=== PATIENT | male | born 1940 | race Caucasian/White ===

== ENCOUNTER 2016-04-08 11:51 | Inpatient (IN) | payer MEDICARE ==
[~2016-04-08] VITALS: Ht 167.6 cm; Wt 109.9 kg
[2016-04-08] VITALS (18 sets, daily range): BP systolic 122–162; BP diastolic 62–83; PULSE 69–83; RESP 20–22; TEMP 97.8–98.6; O2SAT 95–99
[~2016-04-08 11:51] MED LIST: LORTA5 PO; PARO30TA OR; PENI500T PO; PRED20 PO; SIMV40TA OR; TAMS0.4C67 PO
[2016-04-08] MEDS ORDERED: HEPARIN SODIUM - IV 10,000 UNITS/10 ML VIAL IV STA (11:55)
[2016-04-08] MEDS ORDERED: NITROGLYCERIN 0.4 MG SL 25 TABS/BTL SL STA (11:55)
[2016-04-08] MEDS ORDERED: SODIUM CHLOR 0.9% 1000 ML INJ 1,000 ML IV ONE (11:55)
[2016-04-08] MEDS ORDERED: ASPIRIN 81 MG CHEW TAB PO STA (11:55)
[2016-04-08] MEDS ORDERED: SODIUM CHLORIDE 0.9% FLUSH 5 ML FLUSH IVF PRN ×2 (12:00→13:45)
[2016-04-08] MEDS ORDERED: ASPIRIN 325 MG TAB ONE (12:00)
[2016-04-08] MEDS ORDERED: NITROGLYCERIN-DEXTROSE INJ 250 ML IV SCH (12:00)
--- NOTE | 2016-04-08 12:10 | PD ---
HPI Chief Complaint: STEMI Alert Time Seen by Provider: 11:55 Travel History International Travel<30 days: No Contact w/Intl Traveler<30days: No Traveled to known affect area: No History of Present Illness HPI Patient is a 75-year-old male presents emergency Department with approximate 45 minutes worth of chest pain. Patient was apparently outside doing yard work when this started. He states it feels like he is short of breath and mildly nauseous as well. He does have a history of coronary artery disease and stents placed which was more than 5 years ago. He has not had a stress or catheterization since then. 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 He is a smoker high blood pressure high cholesterol and overweight. Patient does have a surgical history of gastric bypass, back surgery which were remote. PFSH Past Medical History Arthritis: Yes (RIGHT KNEE) Asthma: Yes Anxiety: Yes Depression: Yes Cancer: No Cardiovascular Problems: Yes High Cholesterol: Yes Diminished Hearing: Yes Endocrine: No Gastrointestinal Disorders: Yes GERD: Yes Genitourinary: No Hypertension: Yes Immune Disorder: No Implanted Vascular Access Dvce: No Musculoskeletal: Yes Neurologic: No Psychiatric: Yes Reproductive: No Respiratory: Yes Influenza Vaccination: Yes ?: Not Past Surgical History Genitourinary Surgery: Yes (KIDNEYS, APPENDIX) Other Surgery: Yes Social History Alcohol Use: Yes (occ) Tobacco Use: Yes Substance Use: No Allergies-Medications (Allergen,Severity, Reaction): Coded Allergies: No Known Allergies (Unverified , 04/08/16) Reported Meds & Prescriptions Reported Meds & Active Scripts Active Active Prescriptions or Reported Medications Unobtainable Review of Systems Except as stated in HPI: all other systems reviewed are Neg Physical Exam Narrative GENERAL: Well-developed, obese, appears uncomfortable.] SKIN: Warm and diaphoretic HEAD: Atraumatic. Normocephalic. Diaphoretic EYES: Pupils equal and round. No scleral icterus. No injection or drainage. ENT: No nasal bleeding or discharge. Mucous membranes pink and moist. NECK: Trachea midline. No JVD. CARDIOVASCULAR: Regular rate and rhythm. No murmur appreciated. 2+ bilateral equal pulses in all 4 extremities, no reproduction of his chest pain. He is diaphoretic on his chest as well. No bruising. RESPIRATORY: No accessory muscle use. Clear to auscultation. Breath sounds equal bilaterally. GASTROINTESTINAL: Abdomen soft, non-tender, nondistended. Hepatic and splenic margins not palpable. MUSCULOSKELETAL: No obvious deformities. No clubbing. No cyanosis. No edema. NEUROLOGICAL: Awake and alert. No obvious cranial nerve deficits. Motor grossly within normal limits. Normal speech. PSYCHIATRIC: Appropriate mood and affect; insight and judgment normal. Data Data Last Documented VS Vital Signs Date Time Temp Pulse Resp B/P Pulse Ox O2 Delivery O2 Flow Rate FiO2 04/08/16 12:05 82 22 150/83 99 Nasal Cannula 2 Orders Troponin I (04/08/16 11:55) Ckmb (Isoenzyme) Profile (04/08/16 11:55) Complete Blood Count With Diff (04/08/16 11:55) Basic Metabolic Panel (Bmp) (04/08/16 11:55) Magnesium (Mg) (04/08/16 11:55) Calcium (04/08/16 11:55) Prothrombin Time / Inr (Pt) (04/08/16 11:55) Act Partial Throm Time (Ptt) (04/08/16 11:55) B-Type Natriuretic Peptide (04/08/16 11:55) Chest, Single Ap (04/08/16 11:55) Electrocardiogram (04/08/16 11:55) Oxygen Administration (04/08/16 11:55) Iv Access Insert/Monitor (04/08/16 11:55) Oximetry (04/08/16 11:55) Sodium Chlor 0.9% 1000 Ml Inj (Ns 1000 M (04/08/16 11:55) Sodium Chloride 0.9% Flush (Ns Flush) (04/08/16 12:00) Aspirin Chew (Aspirin Chew) (04/08/16 11:55) Nitroglycerin Sl (Nitrostat Sl) (04/08/16 11:55) Nitroglycerin-Dextrose Inj (Nitroglyceri (04/08/16 12:00) Heparin Inj (Heparin Inj) (04/08/16 11:55) Aspirin (Aspirin) (04/08/16 12:00) Admit Order (Ed Use Only) (04/08/16 ) MDM Medical Decision Making Medical Screen Exam Complete: Yes Emergency Medical Condition: Yes Interpretation(s) EKG shows normal sinus rhythm with a normal axis and normal R-wave progression. There is [address] elevation in lead 3 as well as 2 mm in aVF and 1 mm in lead 2. There is also ST depression in aVL V2 and probably V3 only this lead is limited interpretation second artifact. Also ST depression in lead 1. This is consistent with an acute myocardial infarction in the inferior region. Differential Diagnosis STEMI, ACS, unstable angina, pneumonia. Narrative Course Patient was roomed in the emergency department, STEMI alert was called shortly after arrival. Dr. Cordero's was consult by telephone and plan is to go to the cardiac catheter lab. He was given 324 mg of aspirin, 5000 units of heparin IV , nitroglycerin was used cautiously as this is an inferior DE. EMS is being called and patient will be emergently transferred to the [facility] for cardiac catheterization. Chest x-ray was reviewed and shows cardiomegaly without mediastinal widening. No concerning infiltrate or effusion. Diagnosis Primary Impression: STEMI (ST elevation myocardial infarction) Qualified Code: I21.3 - ST elevation myocardial infarction (STEMI), unspecified artery Admitting Information Admitting Physician Requests: Admit Scripts Unable to Obtain Active Prescriptions or Reported Meds Condition: Jaden De Leon MD Apr 08, 2016 12:10 Admitting Information Admitting Physician Requests: Admit Condition: Jaden De Leon MD Apr 08, 2016 12:10
[2016-04-08 12:14] LABS: AUTOMATED NEUTROPHIL # 5.8 TH/MM3 (1.8-7.7); BASOPHIL # 0.1 TH/MM3 (0-0.2); BASOPHIL % 0.9 % (0.0-2.0); EOSINOPHIL # 0.3 TH/MM3 (0-0.4); EOSINOPHIL % 3.7 % (0.0-4.0); HEMATOCRIT 43.8 % (39.0-51.0); HEMO FLAGS DIFF FINAL; LYMPH % 25.6 % (9.0-44.0); LYMPHOCYTE # 2.4 TH/MM3 (1.0-4.8); MEAN CELL VOLUME 91.7 FL (80.0-100.0); MEAN CORPUSCULAR HEMOGLOBIN 30.8 PG (27.0-34.0); MEAN CORPUSCULAR HGB CONC 33.6 % (32.0-36.0); MONO % 7.1 % (0.0-8.0); NEUT % 62.7 % (16.0-70.0); PLATELET COUNT 223 TH/MM3 (150-450); RED BLOOD COUNT 4.77 MIL/MM3 (4.50-5.90); RED CELL DISTRIBUTION WIDTH 12.2 % (11.6-17.2); WHITE BLOOD COUNT 9.3 TH/MM3 (4.0-11.0)
--- NOTE | 2016-04-08 12:14 | RADHPO ---
EXAM DATE/TIME: 04/08/2016 12:02 [place] COMPARISON: CHEST SINGLE AP, April 05, 2012, 6:51. INDICATIONS : Chest pain. MEDICAL HISTORY : None. SURGICAL HISTORY : None. ENCOUNTER: Initial ACUITY: 1 day PAIN SCORE: 7/10 LOCATION: Bilateral chest FINDINGS: A single view of the chest demonstrates mild bibasilar atelectasis. The heart size is mildly enlarged but stable. No pleural effusions. Mild pulmonary venous congestion. The bony structures are intact a nd stable.. CONCLUSION: 1. Mild bibasilar atelectasis. 2. Compensated cardiomegaly. 3. Mild pulmonary venous congestion. Margarito Garcia MD on April 08, 2016 at 12:11 Board Certified Radiologist. This report was verified electronically.
[2016-04-08 12:15] LABS: CHLORIDE 107 MEQ/L (98-107); SODIUM (NA) 144 MEQ/L (136-145)
[2016-04-08 12:18] LABS: ANION GAP 12 MEQ/L (5-15); BICARBONATE 24.8 MEQ/L (21.0-32.0); BLOOD UREA NITROGEN 18 MG/DL (7-18); MAGNESIUM 2.6 MG/DL (1.5-2.5)
[2016-04-08 12:19] LABS: INTERNATIONAL NORMALIZED RATIO 0.9 RATIO; PROTHROMBIN TIME - PATIENT 9.8 SEC (9.8-11.6)
[2016-04-08 12:21] LABS: GLOMERULAR FILTRATION RATE 49 ML/MIN (>89)
[2016-04-08 12:28] LABS: CREATINE KINASE 90 U/L (39-308)
[2016-04-08] MEDS ORDERED: HEPARIN-NS/PF INJ 500 ML ONE (12:38)
[2016-04-08] MEDS ORDERED: MIDAZOLAM HCL 2 MG/2 ML VIAL ONE ×2 (12:39→13:27)
[2016-04-08] MEDS ORDERED: HEPARIN SODIUM - IV 10,000 UNITS/10 ML VIAL ONE (13:08)
[2016-04-08] MEDS ORDERED: TIROFIBAN INFUSION INJ 250 ML IV ONE (13:10)
[2016-04-08] MEDS ORDERED: TICAGRELOR 90 MG TAB PO ONE (13:31)
[2016-04-08] MEDS: SODIUM CHLOR 0.9% 1000 ML INJ 1,000 ML IV SCH ×2 (13:41→21:52)
[2016-04-08] MEDS ORDERED: LORazepam 2 MG/ML VIAL IV PRN (13:45)
[2016-04-08] MEDS ORDERED: ATROPINE SULFATE 1 MG/ML VIAL IV PRN (13:45)
[2016-04-08] MEDS ORDERED: LIDOCAINE HCL 1% 50 ML VIAL INFIL PRN (13:45)
[2016-04-08] MEDS ORDERED: SODIUM CHLOR 0.9% 250 ML INJ 250 ML IV PRN (13:45)
[2016-04-08] MEDS ORDERED: ACETAMINOPHEN 325 MG TAB PO PRN (13:45)
[2016-04-08] MEDS ORDERED: MISC INFORMATION XX ONE (13:45)
[2016-04-08] MEDS ORDERED: ONDANSETRON HCL 4 MG/2 ML VIAL IV PRN (13:45)
[2016-04-08] MEDS ORDERED: TEMAZEPAM 15 MG CAP PO PRN (13:45)
[2016-04-08] MEDS ORDERED: MORPHINE SULFATE 4 MG/ML INJ IV PUSH PRN (13:45)
[2016-04-08] MEDS ORDERED: MIRA50TA PO (14:00)
[2016-04-08] MEDS ORDERED: TAMS0.4C4 PO (14:00)
[2016-04-08] MEDS ORDERED: ALEN1TAB48 PO (14:00)
[2016-04-08] MEDS ORDERED: FLUT1INH INH (14:00)
[2016-04-08] MEDS ORDERED: PRESCAP5 PO (14:00)
[2016-04-08] MEDS ORDERED: SIMV40TA PO (14:00)
[2016-04-08] MEDS ORDERED: OXYB10TA PO (14:00)
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
--- NOTE | 2016-04-08 16:18 | MA ---
cc: DONATO MILLS M.D. DATE: 04/08/2016 PROCEDURE Emergency left heart catheterization, selective coronary angiography, left ventriculography, angioplasty and stent of a totally occluded mid right coronary artery. PROCEDURE NOTE The patient was brought to the cardiac catheterization laboratory under emergency conditions in the midst of an acute inferior myocardial infarction. The right groin was prepped and draped as per policy and anesthetized with 1% lidocaine. Arterial access was obtained via the right femoral artery and a 6-Bhutanese sheath placed. Coronary arteriography was performed using 6-Bhutanese Leonor left 4.5 and right progressive catheters. Left ventriculography was done using a standard 6-Bhutanese pigtail. Percutaneous coronary intervention was done as described below. There were no apparent immediate complications. HEMODYNAMIC RESULTS Left ventricle 128 with an end-diastolic pressure of 10. Aorta 123/61 with a mean 85. There was no significant transvalvular aortic gradient on pullback on pullback of the pigtail catheter. CORONARY ARTERIOGRAPHY The left main is a long vessel with diffuse disease resulting in up to 30% distal stenosis. The left anterior descending is tortuous and diffusely diseased. There is likely up to 20% disease in the proximal LAD. In the mid-LAD there is eccentric 50-70% stenosis. The vessel in this region is small in diameter. The LAD gives rise to medium-sized diagonal which has diffuse minimal luminal irregularities. The distal left anterior descending may have up to 10% stenosis. The left circumflex is a medium-sized vessel giving rise to two small obtuse marginals. There are minimal luminal irregularities in these obtuse marginals. From the ostium to the proximal portion of the left circumflex there is diffuse up to 40% stenosis. The mid to distal left circumflex has minimal luminal minimal luminal irregularities. The right coronary artery is totally occluded in its midportion. PERCUTANEOUS INTERVENTION DESCRIPTION: Aggrastat was given as per protocol. Adequate heparin was given during the procedure to achieve an ACT greater than 250 seconds. Using a 6-Bhutanese hockey-stick guiding catheter with side holes the ostium of the right coronary artery was re-engaged. Using a 0.014 Prowater guidewire the total occlusion was crossed without difficulty and the tip of the wire positioned distally. Wiring the lesion resulted in re-establishment of NANCY grade 2 flow in the vessel. Because of what appears to be thrombus in the region of the stenosis, we decided to make one pass with a export thrombectomy catheter. Pre-dilation was then done using a 3.0-mm Euphora balloon catheter. Stenting was done using a 3.0 x 22-mm Resolute stent which was deployed at 13 atmospheres for 30 seconds. Final angiography shows overall good results with reduction of the initial total occlusion the roughly 0% residual with no definite evidence for dissection or distal embolization. There appears to be minimal to mild diffuse luminal irregularities of the distal right coronary, and what functionally serves as the posterior descending artery is a small to medium sized vessel with overall minimal disease. LEFT VENTRICULOGRAPHY Contrast injection of the left ventricle reveals no definite segmental wall motion abnormalities. Ejection fraction is estimated at 60%. CONCLUSION 1. Moderate to severe three-vessel coronary artery disease including a totally occluded right coronary artery, the patient's infarct-related vessel, now status post emergency angioplasty and stent of the mid right coronary. 2. Normal left ventricular function with estimated ejection fraction of 60%. DISCUSSION The patient has residual borderline disease in the mid-LAD. The vessel in this region is fairly small, likely no greater than 2 mm diameter. Consideration will be made towards nuclear stress testing in the near future to assess the significance of this lesion. MD PARAMJIT Tinajero/britni /1:37 PM /2:43 PM MTDJosé
[2016-04-08] MEDS ORDERED: IOHEXOL 350 MG/ML 100 ML BTL (for Cath Lab) OTHER ONE (16:30)
[2016-04-08] MEDS ORDERED: BACITRACIN OINT 0.9 GM PKT ONE (17:35)
--- NOTE | 2016-04-08 18:36 | HHI.HP ---
HPI Service [facility] Hospitalists Primary Care Physician Isak Escudero MD Admission Diagnosis STEMI Diagnoses: (1) STEMI (ST elevation myocardial infarction) Chief Complaint: Chest pain Travel History International Travel<30 Days: No Contact w/Intl Traveler <30 Da: No Traveled to Known Affected Are: No History of Present Illness 75 year-old male with a history of hyperlipidemia, hypertension, who experienced today substernal chest pain described as stabbing pain without any radiation or diaphoresis, rated 10 out of 10 in intensity, was admitted to [place] and transfer to [facility] as STEMI alert for emergent left heart catheterization by cardiology. He was seen postprocedure in his room . Patient has no GI bleed and, at the time denies any shortness of breath. Review of Systems Other Other 12 systems reviewed and are negative except for the one mentioned in history of present illness Past Family Social History Past Medical History 1. Hypertension 2. Hyperlipidemia. Past Surgical History 1. Gastric bypass surgery. 2. Appendectomy 3. Multiple hand surgeries Allergies: Coded Allergies: No Known Allergies (Unverified , 04/08/16) Family History Patient's mother from sudden cardiac in her sleep Social History Alcohol Use: Yes (occ) Tobacco Use: Yes Substance Use: No Physical Exam Vital Signs Vital Signs Date Time Temp Pulse Resp B/P Pulse Ox O2 Delivery O2 Flow Rate FiO2 04/08/16 18:11 75 04/08/16 17:45 80 04/08/16 16:00 78 04/08/16 16:00 98.0 78 20 162/81 98 04/08/16 12:09 81 20 129/67 98 Nasal Cannula 2 04/08/16 12:05 82 22 150/83 99 Nasal Cannula 2 04/08/16 12:04 99 Nasal Cannula 2 04/08/16 11:56 82 99 Room Air 04/08/16 11:55 99 2.00 04/08/16 11:54 83 20 Physical Exam GENERAL: This is a well-nourished, well-developed patient, in no apparent distress. SKIN: No rashes, ecchymoses or lesions. Cool and dry. HEAD: Atraumatic. Normocephalic. No temporal or scalp tenderness. EYES: Pupils equal round and reactive. Extraocular motions intact. No scleral icterus. No injection or drainage. ENT: Nose without bleeding, purulent drainage or septal hematoma. Throat without erythema, tonsillar hypertrophy or exudate. Uvula midline. Airway patent. NECK: Trachea midline. No JVD or lymphadenopathy. Supple, nontender, no meningeal signs. CARDIOVASCULAR: Regular rate and rhythm without murmurs, gallops, or rubs. RESPIRATORY: Clear to auscultation. Breath sounds equal bilaterally. No wheezes , rales, or rhonchi. GASTROINTESTINAL: Abdomen soft, non-tender, nondistended. No hepato-splenomegaly , or palpable masses. No guarding. MUSCULOSKELETAL: Extremities without clubbing, cyanosis, or edema. No joint tenderness, effusion, or edema noted. No calf tenderness. Negative Homans sign bilaterally. NEUROLOGICAL: Awake and alert. Cranial nerves II through XII intact. Motor and sensory grossly within normal limits. Five out of 5 muscle strength in all muscle groups. Normal speech. Laboratory Laboratory Tests Test 04/08/16 11:45 White Blood Count 9.3 Red Blood Count 4.77 Hemoglobin 14.7 Hematocrit 43.8 Mean Corpuscular Volume 91.7 Mean Corpuscular Hemoglobin 30.8 Mean Corpuscular Hemoglobin 33.6 Concent Red Cell Distribution Width 12.2 Platelet Count 223 Mean Platelet Volume 7.5 Neutrophils (%) (Auto) 62.7 Lymphocytes (%) (Auto) 25.6 Monocytes (%) (Auto) 7.1 Eosinophils (%) (Auto) 3.7 Basophils (%) (Auto) 0.9 Neutrophils # (Auto) 5.8 Lymphocytes # (Auto) 2.4 Monocytes # (Auto) 0.7 Eosinophils # (Auto) 0.3 Basophils # (Auto) 0.1 CBC Comment DIFF FINAL Differential Comment Prothrombin Time 9.8 Prothromb Time International 0.9 Ratio Activated Partial 22.0 Thromboplast Time Sodium Level 144 Potassium Level 4.0 Chloride Level 107 Carbon Dioxide Level 24.8 Anion Gap 12 Blood Urea Nitrogen 18 Creatinine 1.40 Estimat Glomerular Filtration 49 Rate Random Glucose 116 Calcium Level 9.3 Magnesium Level 2.6 Total Creatine Kinase 90 Troponin I LESS THAN 0.02 B-Type Natriuretic Peptide 26 Result Diagram: 04/08/16 1145 04/08/16 1145 Assessment and Plan Problem List: (1) STEMI (ST elevation myocardial infarction) ICD Code: I21.3 Status: Acute Assessment and Plan 75-year-old male with 1-STEMI: s/p emergent left heart catheterization with PCI + stent placement; treatment per cardiology. Continue nitroglycerin, Brilinta, aspirin, Coreg, DENISE inhibitor, statin. Telemetry monitoring 2-Hypertension: On Coreg 3-Hyperlipidemia: Continue statin, monitor lipid profile 4-DVT prophylaxis:Brilinta Code Status Full code Discussed Condition With Patient, Physician Certification 2 Midnight Certification Type: Admission for Inpatient Services Order for Inpatient Services The services are ordered in accordance with Medicare regulations or non- Medicare payer requirements, as applicable. In the case of services not specified as inpatient-only, they are appropriately provided as inpatient services in accordance with the 2-midnight benchmark. Estimated LOS (days): 2 days is the estimated time the patient will need to remain in the hospital, assuming treatment plan goals are met and no additional complications. Post-Hospital Plan: Not yet determined Problem Qualifiers (1) STEMI (ST elevation myocardial infarction): Qualified Code: I21.11 - ST elevation myocardial infarction involving right coronary artery Kishore Denny MD Apr 08, 2016 18:36
[2016-04-08] MEDS ORDERED: CARVEDILOL 3.125 MG TAB PO SCH (21:00)
[2016-04-08] MEDS: ATORVASTATIN 40 MG TAB PO SCH (21:14)
[2016-04-08] MEDS: SODIUM CHLORIDE 0.9% FLUSH 5 ML FLUSH IVF SCH (21:14)
[2016-04-08] MEDS: ENALAPRIL MALEATE 5 MG TAB PO SCH (21:14)
[2016-04-08] MEDS ORDERED: TIROFIBAN INFUSION 12.5 MG/NS 250 ML IV SCH (22:15)
[2016-04-09] VITALS (24 sets, daily range): BP systolic 117–133; BP diastolic 57–67; PULSE 60–78; RESP 18–22; TEMP 97.7–98.6; O2SAT 96–99
[2016-04-09 04:12] LABS: AUTOMATED NEUTROPHIL # 8.6 TH/MM3 (1.8-7.7); BASOPHIL % 0.1 % (0.0-2.0); EOSINOPHIL # 0.2 TH/MM3 (0-0.4); HEMATOCRIT 37.5 % (39.0-51.0); HEMO FLAGS DIFF FINAL; LYMPH % 12.4 % (9.0-44.0); LYMPHOCYTE # 1.4 TH/MM3 (1.0-4.8); MEAN CELL VOLUME 92.4 FL (80.0-100.0); MEAN CORPUSCULAR HEMOGLOBIN 32.1 PG (27.0-34.0); MEAN CORPUSCULAR HGB CONC 34.8 % (32.0-36.0); MONO % 6.9 % (0.0-8.0); NEUT % 78.6 % (16.0-70.0); PLATELET COUNT 175 TH/MM3 (150-450); RED BLOOD COUNT 4.07 MIL/MM3 (4.50-5.90); RED CELL DISTRIBUTION WIDTH 13.2 % (11.6-17.2)
[2016-04-09 04:41] LABS: BICARBONATE 27.4 MEQ/L (21.0-32.0); POTASSIUM 4.5 MEQ/L (3.5-5.1)
[2016-04-09 05:09] LABS: CKMB 133.4 NG/ML (0.5-3.6)
--- NOTE | 2016-04-09 06:48 | PD.CARD.PN ---
Subjective Subjective Remarks Denies angina, dyspnea, dizziness, palpitations. Slept poorly. No groin pain. Objective Medications Item Value Date Time Ticagrelor 90 mg 04/09/16 0900 (Brilinta) BID/PO Tirofiban/Sodium 250 ml @ 19.8 mls/hr 04/08/162214 Chloride [id number]/IV 04/08/16 2343 Atorvastatin 40 mg 04/08/162099 Calcium HS/PO 04/08/162113 (Lipitor) Carvedilol 3.125 mg 04/08/16 2100 (Coreg) Q12HR/PO 04/08/162113 Enalapril Maleate 5 mg 04/08/162099 (Vasotec) BID/PO 04/08/162113 Vital Signs / I&O Vital Signs Date Time Temp Pulse Resp B/P Pulse Ox O2 Delivery O2 Flow Rate FiO2 04/09/16 06:00 72 04/09/16 05:00 73 04/09/16 04:00 72 04/09/16 03:57 98.6 70 20 120/57 98 04/09/16 03:00 69 04/09/16 02:00 71 04/09/16 01:00 68 04/09/16 00:00 74 04/09/16 00:00 71 20 123/67 96 04/08/16 23:45 98.6 73 20 141/63 97 04/08/16 23:30 73 20 145/70 97 04/08/16 23:00 74 04/08/16 23:00 74 20 144/70 98 04/08/16 22:30 73 20 145/70 96 04/08/16 22:00 74 20 142/69 97 04/08/16 22:00 74 04/08/16 21:30 72 20 151/71 97 04/08/16 21:00 69 20 135/71 97 04/08/16 21:00 69 04/08/16 20:30 69 20 128/63 99 04/08/16 20:00 70 20 122/62 95 04/08/16 20:00 70 04/08/16 20:00 77 04/08/16 19:30 72 20 132/68 98 04/08/16 19:00 97.8 76 20 128/69 97 04/08/16 18:11 75 04/08/16 17:45 80 04/08/16 16:00 78 04/08/16 16:00 98.0 78 20 162/81 98 04/08/16 12:09 81 20 129/67 98 Nasal Cannula 2 04/08/16 12:05 82 22 150/83 99 Nasal Cannula 2 04/08/16 12:04 99 Nasal Cannula 2 04/08/16 11:56 82 99 Room Air 04/08/16 11:55 99 2.00 04/08/16 11:54 83 20 I/O 04/08/16 04/08/16 04/08/16 04/09/16 04/09/16 04/09/16 07:00 15:00 23:00 07:00 15:00 23:00 Intake Total 670 ml 718 ml Output Total 700 ml 450 ml Balance -30 ml 268 ml Intake Oral 480 ml 480 ml IV Total 190 ml 238 ml Output Urine Total 700 ml 450 ml Emesis 0 ml # Bowel Movements 0 0 Physical Exam GENERAL: Well developed, well nourished. No acute distress. HEENT: Jugular venous pressure is normal. CHEST: Lungs clear to auscultation bilaterally. Unlabored respiratory effort. CARDIAC: Regular rate and rhythm without S3, S4, or murmur. ABDOMEN: Soft, nontender, no hepatosplenomegaly. Bowel sounds present. EXTREMITIES: No clubbing, cyanosis, or edema. Right groin nontender, no definite hematoma. Laboratory Laboratory Tests Test 04/08/16 04/09/16 11:45 03:24 White Blood Count 9.3 TH/MM3 11.0 TH/MM3 Red Blood Count 4.77 MIL/MM3 4.07 MIL/MM3 Hemoglobin 14.7 GM/DL 13.1 GM/DL Hematocrit 43.8 % 37.5 % Mean Corpuscular Volume 91.7 FL 92.4 FL Mean Corpuscular Hemoglobin 30.8 PG 32.1 PG Mean Corpuscular Hemoglobin 33.6 % 34.8 % Concent Red Cell Distribution Width 12.2 % 13.2 % Platelet Count 223 TH/MM3 175 TH/MM3 Mean Platelet Volume 7.5 FL 7.8 FL Neutrophils (%) (Auto) 62.7 % 78.6 % Lymphocytes (%) (Auto) 25.6 % 12.4 % Monocytes (%) (Auto) 7.1 % 6.9 % Eosinophils (%) (Auto) 3.7 % 2.0 % Basophils (%) (Auto) 0.9 % 0.1 % Neutrophils # (Auto) 5.8 TH/MM3 8.6 TH/MM3 Lymphocytes # (Auto) 2.4 TH/MM3 1.4 TH/MM3 Monocytes # (Auto) 0.7 TH/MM3 0.8 TH/MM3 Eosinophils # (Auto) 0.3 TH/MM3 0.2 TH/MM3 Basophils # (Auto) 0.1 TH/MM3 0.0 TH/MM3 CBC Comment DIFF FINAL DIFF FINAL Differential Comment Prothrombin Time 9.8 SEC Prothromb Time International 0.9 RATIO Ratio Activated Partial 22.0 SEC Thromboplast Time Sodium Level 144 MEQ/L 140 MEQ/L Potassium Level 4.0 MEQ/L 4.5 MEQ/L Chloride Level 107 MEQ/L 106 MEQ/L Carbon Dioxide Level 24.8 MEQ/L 27.4 MEQ/L Anion Gap 12 MEQ/L 7 MEQ/L Blood Urea Nitrogen 18 MG/DL 17 MG/DL Creatinine 1.40 MG/DL 1.02 MG/DL Estimat Glomerular Filtration 49 ML/MIN 71 ML/MIN Rate Random Glucose 116 MG/DL 114 MG/DL Calcium Level 9.3 MG/DL 8.3 MG/DL Magnesium Level 2.6 MG/DL Total Creatine Kinase 90 U/L 1232 U/L Troponin I LESS THAN 0.02 NG/ML B-Type Natriuretic Peptide 26 PG/ML Creatine Kinase MB 133.4 NG/ML Creatine Kinase MB % 10.8 % Triglycerides Level 169 MG/DL Cholesterol Level 121 MG/DL LDL Cholesterol 51 MG/DL HDL Cholesterol 36.0 MG/DL Cholesterol/HDL Ratio 3.36 RATIO Assessment and Plan Problem List: (1) STEMI (ST elevation myocardial infarction) Assessment and Plan: Stable overnight. No further angina. No definite CHF or arrhythmias. Groin stable. REC 24 more hours observation ambulate this afternoon discharge tomorrow if stable, 3-4 week f/u with me will consider nuclear stress testing to evaluate residual mid LAD disease (50-70%) (2) Hyperlipidemia Assessment and Plan: Good lipid profile. Nonetheless rec statin therapy. (3) Hypertension Assessment and Plan: Stable. Normotensive this morning. Code Status full code Discussed Condition With patient Problem Qualifiers (1) STEMI (ST elevation myocardial infarction): Qualified Code: I21.11 - ST elevation myocardial infarction involving right coronary artery (2) Hyperlipidemia: Qualified Code: E78.2 - Mixed hyperlipidemia (3) Hypertension: Qualified Code: I10 - Essential hypertension Al Askew MD Apr 09, 2016 06:48
[2016-04-09] MEDS ORDERED: CARV3.125 PO (06:51)
[2016-04-09] MEDS ORDERED: ENAL5TAB PO (06:51)
[2016-04-09] MEDS ORDERED: BRIL90TA PO (06:51)
[2016-04-09] MEDS ORDERED: LIPI40TA PO (06:51)
[2016-04-09] MEDS ORDERED: ASPI81TA11 PO (06:52)
[2016-04-09] MEDS: SODIUM CHLORIDE 0.9% FLUSH 5 ML FLUSH IVF SCH ×2 (07:57→21:34)
[2016-04-09] MEDS: CARVEDILOL 3.125 MG TAB PO SCH ×2 (07:57→21:33)
[2016-04-09] MEDS: TICAGRELOR 90 MG TAB PO SCH ×2 (07:57→21:33)
[2016-04-09] MEDS: ENALAPRIL MALEATE 5 MG TAB PO SCH ×2 (08:55→21:34)
--- NOTE | 2016-04-09 11:27 | HHI.PR ---
Subjective Remarks Follow-up STEMI 04/09/16-patient seen and examined; denies any chest pain or shortness of breath this morning. Vitals stable. No acute event overnight. Objective Vitals Vital Signs Date Time Temp Pulse Resp B/P Pulse Ox O2 Delivery O2 Flow Rate FiO2 04/09/16 10:07 66 04/09/16 09:24 60 04/09/16 08:00 97.9 66 22 133/67 97 04/09/16 08:00 67 04/09/16 06:00 72 04/09/16 05:00 73 04/09/16 04:00 72 04/09/16 03:57 98.6 70 20 120/57 98 04/09/16 03:00 69 04/09/16 02:00 71 04/09/16 01:00 68 04/09/16 00:00 74 04/09/16 00:00 71 20 123/67 96 04/08/16 23:45 98.6 73 20 141/63 97 04/08/16 23:30 73 20 145/70 97 04/08/16 23:00 74 04/08/16 23:00 74 20 144/70 98 04/08/16 22:30 73 20 145/70 96 04/08/16 22:00 74 20 142/69 97 04/08/16 22:00 74 04/08/16 21:30 72 20 151/71 97 04/08/16 21:00 69 20 135/71 97 04/08/16 21:00 69 04/08/16 20:30 69 20 128/63 99 04/08/16 20:00 70 20 122/62 95 04/08/16 20:00 70 04/08/16 20:00 77 04/08/16 19:30 72 20 132/68 98 04/08/16 19:00 97.8 76 20 128/69 97 04/08/16 18:11 75 04/08/16 17:45 80 04/08/16 16:00 78 04/08/16 16:00 98.0 78 20 162/81 98 04/08/16 12:09 81 20 129/67 98 Nasal Cannula 2 04/08/16 12:05 82 22 150/83 99 Nasal Cannula 2 04/08/16 12:04 99 Nasal Cannula 2 04/08/16 11:56 82 99 Room Air 04/08/16 11:55 99 2.00 04/08/16 11:54 83 20 I/O 04/08/16 04/08/16 04/08/16 04/09/16 04/09/16 04/09/16 07:00 15:00 23:00 07:00 15:00 23:00 Intake Total 670 ml 718 ml Output Total 700 ml 450 ml Balance -30 ml 268 ml Intake Oral 480 ml 480 ml IV Total 190 ml 238 ml Output Urine Total 700 ml 450 ml Emesis 0 ml # Bowel Movements 0 0 Result Diagram: 04/09/16 0324 04/09/16 0324 Imaging Last Impressions Chest X-Ray 04/08/16 1155 Signed Impressions: Service Date/Time: March 12:02 - CONCLUSION: 1. Mild bibasilar atelectasis. 2. Compensated cardiomegaly. 3. Mild pulmonary venous congestion. Margarito Garcia MD Objective Remarks GENERAL: NAD SKIN: Warm and dry. HEAD: Normocephalic. EYES: No scleral icterus. No injection or drainage. NECK: Supple, trachea midline. No JVD or lymphadenopathy. CARDIOVASCULAR: Regular rate and rhythm without murmurs, gallops, or rubs. RESPIRATORY: Breath sounds equal bilaterally. No accessory muscle use. GASTROINTESTINAL: Abdomen soft, non-tender, nondistended. MUSCULOSKELETAL: No cyanosis, or edema. BACK: Nontender without obvious deformity. No CVA tenderness. A/P Problem List: (1) STEMI (ST elevation myocardial infarction) ICD Code: I21.3 Status: Acute Assessment and Plan 75-year-old male with 1-STEMI: s/p emergent left heart catheterization with PCI + stent placement ; treatment per cardiology. Continue Brilinta, aspirin, Coreg, DENISE inhibitor, statin. Cardiology recommended nuclear stress test outpatient. Telemetry monitoring 2-Hypertension: On Coreg 3-hyperlipidemia: Continue statin, monitor lipid profile 4-DVT prophylaxis:Brilinta Discharged tomorrow 04/10/16 Problem Qualifiers (1) STEMI (ST elevation myocardial infarction): Qualified Code: I21.11 - ST elevation myocardial infarction involving right coronary artery Kishore Denny MD Apr 09, 2016 11:27
[2016-04-09] MEDS: FLUTICASONE 100 MCG/VILANTEROL 25 MCG INHALER INH SCH (11:45)
[2016-04-09] MEDS ORDERED: RESP: ALBUTEROL 2.5 MG/IPRATROPIUM 0.5 MG NEB (PRN) NEB (11:45)
[2016-04-09] MEDS ORDERED: TAMSULOSIN HCL 0.4 MG CAP PO SCH (21:00)
[2016-04-09] MEDS: ATORVASTATIN 40 MG TAB PO SCH (21:33)
--- NOTE | 2016-04-09 23:02 | EKG ---
Date Performed: 04/08/2016 Time Performed: 11:51:24 PTAGE: 75 years EKG: CONSIDER ACUTE ST ELEVATION MT Sinus rhythm with 1st degree A-V block. Inferior ST elevation, CONSIDER ACUTE INFARCT Ant/septal and lateral ST-T changes suggest myocardial injury/ischemia Abnormal ECG PREVIOUS TRACING : 04/05/2012 05.12 DOCTOR: Sindi Garcia Interpretating Date/Time 04/09/2016 22:53:17
[2016-04-10] VITALS (12 sets, daily range): BP systolic 105–116; BP diastolic 55–75; PULSE 61–75; RESP 18–20; TEMP 97.4–97.7; O2SAT 96–97
[2016-04-10] MEDS: CARVEDILOL 3.125 MG TAB PO SCH (09:08)
[2016-04-10] MEDS: TICAGRELOR 90 MG TAB PO SCH (09:08)
[2016-04-10] MEDS: ENALAPRIL MALEATE 5 MG TAB PO SCH (09:09)
[2016-04-10] MEDS: SODIUM CHLORIDE 0.9% FLUSH 5 ML FLUSH IVF SCH (09:10)
[2016-04-10] MEDS: FLUTICASONE 100 MCG/VILANTEROL 25 MCG INHALER INH SCH (09:11)
--- NOTE | 2016-04-10 09:22 | PD.CARD.PN ---
Subjective Subjective Remarks No chest pain, no shortness of breath, up and ambulating Objective Medications Current Medications Medications (Trade) Dose Ordered Sig/Nick Route Start Time Stop Time Status Last Admin (Nitroglycerin-Dextrose Inj) 250 ml @ 0 mls/hr TITRATE IV 04/08/16 12:00 (NS Flush) 2 ml UNSCH PRN IVF 04/08/16 13:45 (NS Flush) 2 ml BID IVF 04/08/16 21:00 04/10/16 09:10 (Tylenol) 325 mg Q4H PRN PO 04/08/16 13:45 (Morphine Inj) 2 mg Q30M PRN IV PUSH 04/08/16 13:45 (Restoril) 15 mg HS PRN PO 04/08/16 13:45 (Brilinta) 90 mg BID PO 04/09/16 09:00 04/10/16 09:08 (Atropine Inj) 0.5 mg UNSCH PRN IV 04/08/16 13:45 (Zofran Inj) 4 mg Q4H PRN IV 04/08/16 13:45 (Lipitor) 40 mg HS PO 04/08/16 21:00 04/09/16 21:33 (Vasotec) 5 mg BID PO 04/08/16 21:00 04/10/16 09:09 (Coreg) 6.25 mg Q12HR PO 04/09/16 09:00 04/10/16 09:08 (Breo Ellipta 100-25 Inh) 1 puff DAILY INH 04/09/16 11:45 04/10/16 09:11 (Flomax) 0.4 mg HS PO 04/09/16 21:00 04/09/16 21:34 Vital Signs / I&O Vital Signs Date Time Temp Pulse Resp B/P Pulse Ox O2 Delivery O2 Flow Rate FiO2 04/10/16 07:57 Room Air 04/10/16 07:57 97.7 64 20 116/75 96 04/10/16 06:00 74 04/10/16 05:00 65 04/10/16 04:00 97.4 74 20 112/55 96 04/10/16 04:00 Room Air 04/10/16 04:00 68 04/10/16 03:00 68 04/10/16 02:00 67 04/10/16 01:00 70 04/10/16 00:00 75 04/10/16 00:00 97.6 74 18 105/55 97 04/10/16 00:00 Room Air 04/09/16 23:00 71 04/09/16 22:00 71 04/09/16 21:00 68 04/09/16 20:00 Room Air 04/09/16 20:00 97.9 68 18 131/64 96 04/09/16 20:00 68 04/09/16 19:00 69 04/09/16 18:00 78 04/09/16 17:03 74 04/09/16 16:12 70 04/09/16 15:03 68 04/09/16 15:03 97.7 66 22 117/63 99 04/09/16 14:04 62 04/09/16 13:04 67 04/09/16 12:07 71 04/09/16 11:25 98.0 71 22 133/67 99 04/09/16 11:25 69 04/09/16 10:07 66 04/09/16 09:24 60 I/O 04/09/16 04/09/16 04/09/16 04/10/16 04/10/16 04/10/16 07:00 15:00 23:00 07:00 15:00 23:00 Intake Total 718 ml 600 ml 600 ml Output Total 450 ml Balance 268 ml 600 ml 600 ml Intake Oral 480 ml 600 ml 600 ml IV Total 238 ml Output Urine Total 450 ml Emesis 0 ml # Voids 8 10 # Bowel Movements 0 1 0 Physical Exam GENERAL: NAD SKIN: Warm and dry. HEAD: Atraumatic. Normocephalic. EYES: Pupils equal and round. No scleral icterus. No injection or drainage. ENT: No nasal bleeding or discharge. Mucous membranes pink and moist. NECK: Trachea midline. No JVD. CARDIOVASCULAR: Regular rate and rhythm. RESPIRATORY: No accessory muscle use. Clear to auscultation. Breath sounds equal bilaterally. GASTROINTESTINAL: Abdomen soft, non-tender, nondistended. Hepatic and splenic margins not palpable. MUSCULOSKELETAL: Extremities without clubbing, cyanosis, or edema. No obvious deformities. Right femoral no hematoma/bruit NEUROLOGICAL: Awake and alert. No obvious cranial nerve deficits. Motor grossly within normal limits. Five out of 5 muscle strength in the arms and legs. Normal speech. PSYCHIATRIC: Appropriate mood and affect; insight and judgment normal. Assessment and Plan Problem List: (1) STEMI (ST elevation myocardial infarction) (2) Hyperlipidemia (3) Hypertension Assessment and Plan 1) Doing well, will discharge today 2) ASA/Brilinta/Statin/Coreg 3) Follow up with Dr. Askew in 3-4 weeks, moderate lesion LAD, will consider nuclear stress test at that time Problem Qualifiers (1) STEMI (ST elevation myocardial infarction): Qualified Code: I21.11 - ST elevation myocardial infarction involving right coronary artery (2) Hyperlipidemia: Qualified Code: E78.2 - Mixed hyperlipidemia (3) Hypertension: Qualified Code: I10 - Essential hypertension Kamron Calderón DO Apr 10, 2016 09:22
--- NOTE | 2016-04-10 09:25 | HHI.DS ---
Discharge Summary Admission Date Apr 08, 2016 at 12:06 Admitting Diagnosis STEMI (1) STEMI (ST elevation myocardial infarction) Diagnosis: Principal (2) Hyperlipidemia Diagnosis: Secondary (3) Hypertension Diagnosis: Secondary CBC/BMP: 04/09/16 0324 04/09/16 0324 Significant Findings Laboratory Tests Test 04/08/16 04/09/16 11:45 03:24 Activated Partial 22.0 SEC Thromboplast Time (24.3-30.1) Creatinine 1.40 MG/DL (0.60-1.30) Estimat Glomerular Filtration 49 ML/MIN (>89) 71 ML/MIN (>89) Rate Random Glucose 116 MG/DL 114 MG/DL (74-106) (74-106) Magnesium Level 2.6 MG/DL (1.5-2.5) Troponin I LESS THAN 0.02 NG/ML (0.02-0.05) Red Blood Count 4.07 MIL/MM3 (4.50-5.90) Hematocrit 37.5 % (39.0-51.0) Neutrophils (%) (Auto) 78.6 % (16.0-70.0) Neutrophils # (Auto) 8.6 TH/MM3 (1.8-7.7) Calcium Level 8.3 MG/DL (8.5-10.1) Total Creatine Kinase 1232 U/L (39-308) Creatine Kinase MB 133.4 NG/ML (0.5-3.6) Creatine Kinase MB % 10.8 % (0.0-4.0) Triglycerides Level 169 MG/DL (42-150) HDL Cholesterol 36.0 MG/DL (40.0-60.0) PE at Discharge GENERAL: NAD SKIN: Warm and dry. HEAD: Atraumatic. Normocephalic. EYES: Pupils equal and round. No scleral icterus. No injection or drainage. ENT: No nasal bleeding or discharge. Mucous membranes pink and moist. NECK: Trachea midline. No JVD. CARDIOVASCULAR: Regular rate and rhythm. RESPIRATORY: No accessory muscle use. Clear to auscultation. Breath sounds equal bilaterally. GASTROINTESTINAL: Abdomen soft, non-tender, nondistended. Hepatic and splenic margins not palpable. MUSCULOSKELETAL: Extremities without clubbing, cyanosis, or edema. No obvious deformities. NEUROLOGICAL: Awake and alert. No obvious cranial nerve deficits. Motor grossly within normal limits. Five out of 5 muscle strength in the arms and legs. Normal speech. PSYCHIATRIC: Appropriate mood and affect; insight and judgment normal. Pt Condition on Discharge: Good Discharge Disposition: Discharge Home Discharge Instructions DIET: Follow Instructions for: Heart Healthy Diet Activities you can perform: Regular-No Restrictions Additional Activity Instructio: Do not lift more than 10 lbs for 2-3 days New Medications: Aspirin DR (Aspirin EC) 81 Mg Tabdr 81 MG PO DAILY CLOT PREVENTION Days 30 Ref 11 TAB Atorvastatin (Lipitor) 40 Mg Tab 40 MG PO HS CHOLESTEROL LOWERING Days 30 Ref 11 TAB Carvedilol (Coreg) 3.125 Mg Tab 6.25 MG PO Q12HR HEART PROTECTION Days 30 Ref 11 TAB Enalapril (Enalapril) 5 Mg Tab 5 MG PO BID HEART PROTECTION Days 30 Ref 11 TAB Ticagrelor (Brilinta) 90 Mg Tab 90 MG PO BID CLOT PREVENTION Days 30 Ref 11 TAB Continued Medications: Alendronate (Alendronate) 70 Mg Tab 70 MG PO Q7D Osteporosis Treatment #4 Ref 0 TAB Fluticasone-Vilanterol Inh (Breo Ellipta Inh) 100-25 Mcg/Act Inh 1 PUFF INH DAILY Use daily at the same time. #1 Ref 0 INHALER Mirabegron (Myrbetriq) 50 Mg Tab 50 MG PO DAILY Urinary Symptom Managemen #30 Ref 0 TAB Multiple Vitamins W/ Minerals (Preservision Areds 2) 1 Cap 1 CAP PO DAILY Nutritional Supplement Ref 0 CAP Oxybutynin ER 24 HR (Oxybutynin ER 24 HR) 10 Mg Tab 10 MG PO DAILY Overactive Bladder Ref 0 TAB Tamsulosin (Tamsulosin) 0.4 Mg Cap 0.4 MG PO HS Manage Prostate Problems #30 Ref 0 CAP Discontinued Medications: Simvastatin (Simvastatin) 40 Mg Tab 40 MG PO HS Cholesterol Management #30 Ref 0 TAB Kamron Calderón DO Apr 10, 2016 09:24
== END 2016-04-10 11:42 | disposition home or self-care (01) | DRG 247 ==
LOC: PHED 11:51 → PHEDA 12:06 → HCPC 14:20
PROVIDERS: ADMIT Internal Medicine Cardiovascular Disease; ATTEND Internal Medicine Cardiovascular Disease
PROC: 027034Z Dilation of Coronary Artery, One Artery with Drug-eluting Intraluminal Device, Percutaneous Approach (ICD-10-PCS; principal; 2016-04-08)
PROC: 02C03ZZ Extirpation of Matter from Coronary Artery, One Artery, Percutaneous Approach (ICD-10-PCS; 2016-04-08)
PROC: 4A023N7 Measurement of Cardiac Sampling and Pressure, Left Heart, Percutaneous Approach (ICD-10-PCS; 2016-04-08)
PROC: B2111ZZ Fluoroscopy of Multiple Coronary Arteries using Low Osmolar Contrast (ICD-10-PCS; 2016-04-08)
PROC: B2151ZZ Fluoroscopy of Left Heart using Low Osmolar Contrast (ICD-10-PCS; 2016-04-08)
DX: I21.19 ST elevation (STEMI) myocardial infarction involving other coronary artery of inferior wall (principal); I11.9 Hypertensive heart disease without heart failure; I25.10 Atherosclerotic heart disease of native coronary artery without angina pectoris; E78.2 Mixed hyperlipidemia; E87.6 Hypokalemia; K21.9 Gastro-esophageal reflux disease without esophagitis; E66.9 Obesity, unspecified; J45.909 Unspecified asthma, uncomplicated; H91.90 Unspecified hearing loss, unspecified ear; M17.11 Unilateral primary osteoarthritis, right knee; F32.9 Major depressive disorder, single episode, unspecified; F41.9 Anxiety disorder, unspecified; Z68.39 Body mass index [BMI] 39.0-39.9, adult; Z87.891 Personal history of nicotine dependence; Z95.5 Presence of coronary angioplasty implant and graft; Z98.84 Bariatric surgery status
CPT/HCPCS: 71010; 80048; 80061; 82550; 82552; 83735; 83880; 84484; 85002; 85025; 85347; 85610; 85730; 92941; 93005; 93458; 94664; 96374; C1725; C1757; C1769; C1874; C1887; C1893; J1644; J2250; J3010; J3246; J7030; Q9967

== ENCOUNTER 2016-06-15 12:31 | Day surgery (SDC) | payer MEDICARE ==
--- NOTE | 2016-06-09 10:10 | MH ---
cc: DONATO MILLS M.D. DATE OF ADMISSION: 06/15/2016 REASON FOR ADMISSION Cardiac catheterization. DATE OF 1940 HISTORY OF PRESENT ILLNESS The patient is a 75-year-old white male with a history of coronary artery disease, hypertension, hyperlipidemia who is now admitted for a cardiac catheterization. The patient sustained an inferior ST-elevation myocardial infarction in 04/08/2016 undergoing stent of a totally occluded mid-right coronary artery at that time. On follow-up in the office he continued to complain of chest discomfort and shortness of breath. The chest discomforts occur occasionally, never lasting more than a few minutes, described as "sharp," localized to the left parasternal region. The chest pains have no definitive relationship to exertion. The patient also complains of somewhat worsening moderate to severe dyspnea with minimal to mild exertion. He underwent a nuclear stress test on 05/26/2016 showing inferolateral ischemia and infarction. Because of his ongoing chest pain symptoms and the abnormal nuclear stress test, he was recommended cardiac catheterization. PAST MEDICAL HISTORY 1. Coronary artery disease status post inferior ST-elevation myocardial infarction on 04/08/2016 with cardiac catheterization at that time showing 30% distal left main, 50-70% mid-LAD, 40% ostial to proximal left circumflex, totally occluded mid-right coronary artery stented with a 3.0-mm Resolute stent, ejection fraction 60%. 2. Hyperlipidemia. 3. Hypertension. 4. Gastroesophageal reflux disease. PAST SURGICAL HISTORY 1. Appendectomy 2. Gastric bypass. CARDIAC MEDICATIONS 1. Aspirin 81 mg daily. 2. Atorvastatin 40 mg q.h.s. 3. Brilinta 90 mg b.i.d. 4. Carvedilol 6.25 mg b.i.d. 5. Enalapril 5 mg b.i.d. ALLERGIES No known drug allergies. FAMILY HISTORY Noncontributory. SOCIAL HISTORY The patient smokes cigarettes. He denies alcohol abuse. REVIEW OF SYSTEMS As in the History of Present Illness, otherwise negative or noncontributory. PHYSICAL EXAMINATION VITAL SIGNS: On exam his blood pressure is 126/70 with a pulse of 65, respirations 15. GENERAL: He is a well-developed, well-nourished white male in no acute distress. NECK/HEENT: On examination jugular venous pressure is normal. Carotid pulses are 2+ bilaterally and without bruits. EXAMINATION OF THE CHEST: Clear lung medina. CARDIAC EXAMINATION: He has a regular rhythm and rate, without S3, S4 or murmur. ABDOMEN: On abdominal examination he has a soft, nontender abdomen. Bowel sounds are present. There is no definite hepatosplenomegaly. EXAMINATION OF THE EXTREMITIES: No clubbing, cyanosis or edema. IMPRESSION Ongoing chest pains in this 75-year-old white male with a history of coronary artery disease status post inferior ST-elevation myocardial infarction and stent of the right coronary artery about two months ago, history of hyperlipidemia, hypertension, gastroesophageal reflux disease. Although his chest pains are atypical for myocardial ischemia, he does have a nuclear stress test suggesting residual inferolateral ischemia. He does have some borderline disease in his mid-LAD, although nuclear stress test imaging suggests normal perfusion in the anterior wall. Overall I doubt he has restenosed his right coronary artery stent; nonetheless with his abnormal nuclear stress test findings and his ongoing chest pains, I have recommended he undergo cardiac catheterization with possible repeat percutaneous coronary intervention. The risks of these procedures including but not limited to , myocardial infarction, stroke, arrhythmia, bleeding, infection and renal failure have been outlined to the patient who agrees to proceed. PLAN Cardiac catheterization on 06/15/2016. MD PARAMJIT Tinajero/BOUCHRA /9:12 AM /10:08 AM CHITO
[~2016-06-15] VITALS: Ht 167.6 cm; Wt 106.6 kg
[~2016-06-15 12:31] MED LIST changes: +ALEN1TAB48 PO; +ASPI81TA11 PO; +BRIL90TA PO; +CARV3.125 PO; +ENAL5TAB PO; +FLUT1INH INH; +LIPI40TA PO; -LORTA5 PO; +MIRA50TA PO; +OXYB10TA PO; -PARO30TA OR; -PENI500T PO; -PRED20 PO; +PRESCAP5 PO; -SIMV40TA OR; +TAMS0.4C4 PO; -TAMS0.4C67 PO
[2016-06-15] MEDS ORDERED: NS 1000P @30 MLS/HR (KVO) IV SCH (12:45)
[2016-06-15 13:05] VITALS: BP 175/93; PULSE 74; RESP 20; TEMP 98.2; O2SAT 97
[2016-06-15 13:24] LABS: AUTOMATED NEUTROPHIL # 5.9 TH/MM3 (1.8-7.7); BASOPHIL % 0.2 % (0.0-2.0); EOSINOPHIL # 0.4 TH/MM3 (0-0.4); EOSINOPHIL % 4.9 % (0.0-4.0); HEMO FLAGS DIFF FINAL; LYMPH % 21.8 % (9.0-44.0); LYMPHOCYTE # 1.9 TH/MM3 (1.0-4.8); MEAN CELL VOLUME 93.1 FL (80.0-100.0); MEAN CORPUSCULAR HEMOGLOBIN 31.3 PG (27.0-34.0); MEAN CORPUSCULAR HGB CONC 33.7 % (32.0-36.0); MONO % 6.1 % (0.0-8.0); PLATELET COUNT 184 TH/MM3 (150-450); RED BLOOD COUNT 4.62 MIL/MM3 (4.50-5.90); RED CELL DISTRIBUTION WIDTH 13.3 % (11.6-17.2); WHITE BLOOD COUNT 8.8 TH/MM3 (4.0-11.0)
[2016-06-15] MEDS ORDERED: CARV6.252 PO (13:26)
[2016-06-15] MEDS ORDERED: MULT1TAB84 PO (13:26)
[2016-06-15] MEDS ORDERED: SIMV40TA PO (13:26)
[2016-06-15] MEDS ORDERED: FLUTI44I INH (13:26)
[2016-06-15] MEDS ORDERED: ALBUAER3 INH (13:26)
[2016-06-15 13:33] LABS: BICARBONATE 26.4 MEQ/L (21.0-32.0); POTASSIUM 4.3 MEQ/L (3.5-5.1)
[2016-06-15 14:00] LABS: APTT (PATIENT) 29.8 SEC (24.3-30.1); PROTHROMBIN TIME - PATIENT 10.8 SEC (9.8-11.6)
[2016-06-15] MEDS ORDERED: IOHEXOL 350 MG/ML 100 ML BTL (for Cath Lab) OTHER ONE (14:50)
[2016-06-15] MEDS ORDERED: HEPARIN-NS/PF INJ 500 ML ONE (14:55)
[2016-06-15] MEDS ORDERED: MIDAZOLAM HCL 2 MG/2 ML VIAL ONE (14:56)
[2016-06-15] MEDS ORDERED: HEPARIN SODIUM - IV 10,000 UNITS/10 ML VIAL ONE (14:56)
[2016-06-15] MEDS ORDERED: VERAPAMIL HCL 5 MG/2 ML VIAL ONE (14:56)
[2016-06-15] MEDS ORDERED: SODIUM CHLOR 0.9% 1000 ML INJ 1,000 ML IV ONE (16:15)
[2016-06-15] MEDS ORDERED: ONDANSETRON HCL 4 MG/2 ML VIAL IV PRN (16:15)
[2016-06-15] MEDS ORDERED: ATROPINE SULFATE 1 MG/ML VIAL IVP PRN (16:15)
[2016-06-15] MEDS ORDERED: SODIUM CHLOR 0.9% 250 ML INJ 250 ML IV PRN (16:15)
--- NOTE | 2016-06-15 17:29 | MA ---
cc: VANESSA MILLS DATE: 06/15/2016 PROCEDURE Left heart catheterization, selective coronary angiography, left ventriculography. PROCEDURE NOTE The patient was brought to the cardiac catheterization laboratory in a fasting state after having signed informed consent. The right radial region was prepped and draped as per policy and anesthetized with 1% lidocaine. Arterial access was obtained via the right radial artery and a 6-Burmese sheath placed. Coronary arteriography was performed using 6-Burmese Leonor right 5.0 for the right coronary artery and a [place] catheter for the left coronary system. Left ventriculography was done using a multipurpose catheter. There were no apparent immediate complications. A TR band was applied to his right wrist at the end of the case to achieve good hemostasis. HEMODYNAMIC RESULTS Left ventricle: 98 with an end-diastolic pressure of 14. Aorta: 100/60 with a mean of 88. There was no significant transvalvular aortic gradient on pullback of the pigtail catheter. CORONARY ARTERIOGRAPHY The left main is a very long vessel with up to 25% distal stenosis. There are mild luminal irregularities of the proximal and mid left main. The left anterior descending demonstrates diffuse proximal disease resulting in up to 30% stenosis. In the mid-LAD there is somewhat eccentric 50-60% stenosis. The distal LAD has minimal luminal irregularities. The left circumflex is a fairly large vessel giving rise to three small obtuse marginals. There is diffuse ostial to proximal left circumflex disease resulting in up to 30-40% stenosis. The right coronary artery is a large dominant vessel demonstrating a widely patent mid vessel stent. There is up to 30% ostial right coronary disease. In the very distal right coronary, there may be 50% tubular stenosis. LEFT VENTRICULOGRAPHY Contrast injection of the left ventricle reveals no segmental wall motion abnormalities. Ejection fraction is estimated at 55-60%. CONCLUSIONS 1. Widely patent mid right coronary artery stent placed 04/08/2016. 2. Moderate disease of the mid LAD and of the proximal left circumflex. 3. Normal left ventricular function with estimated ejection fraction of 55-60% MD PARAJMIT Tinajero/SHERIE /4:26 PM /5:24 PM CHITO
--- NOTE | 2016-06-15 22:34 | EKG ---
Date Performed: 06/15/2016 Time Performed: 13:15:12 PTAGE: 75 years EKG: Sinus rhythm . Poor R wave progression - probable normal variant Inferior ST-T changes are nonspecific Borderline ECG PREVIOUS TRACING : 04/08/2016 11.51 Compared to the previous tracing ST changes no longer prese nt DOCTOR: Kyle Calvert Interpretating Date/Time 06/15/2016 22:33:33
== END 2016-06-15 18:58 | disposition home or self-care (01) ==
LOC: HCAT 12:31 → HDIC 12:32 → HCAT 18:58
PROVIDERS: ATTEND Internal Medicine Cardiovascular Disease
DX: I25.10 Atherosclerotic heart disease of native coronary artery without angina pectoris (principal); I10 Essential (primary) hypertension; E78.5 Hyperlipidemia, unspecified; I25.2 Old myocardial infarction; K21.9 Gastro-esophageal reflux disease without esophagitis; J45.909 Unspecified asthma, uncomplicated; F17.210 Nicotine dependence, cigarettes, uncomplicated; Z98.84 Bariatric surgery status; Z95.5 Presence of coronary angioplasty implant and graft
CPT/HCPCS: 80048; 85025; 85610; 85730; 93005; 93458; C1769; C1893; J1644; J2250; Q9967

== ENCOUNTER 2016-11-11 15:30 | Observation (INO) | payer MEDICARE ==
[~2016-11-11] VITALS: Ht 167.6 cm; Wt 109.6 kg
[~2016-11-11 15:30] MED LIST changes: +ALBUAER3 INH; -ALEN1TAB48 PO; -CARV3.125 PO; +CARV6.252 PO; -FLUT1INH INH; +FLUTI44I INH; -LIPI40TA PO; +MULT1TAB84 PO; -OXYB10TA PO; +SIMV40TA PO
[2016-11-11 15:41] VITALS: BP 138/82; PULSE 76; RESP 18; TEMP 97.8; O2SAT 98
[2016-11-11 15:57] VITALS: O2SAT 98
--- NOTE | 2016-11-11 15:58 | PD ---
HPI Chief Complaint: Respiratory Symptoms Time Seen by Provider: 15:42 Travel History International Travel<30 days: No Contact w/Intl Traveler<30days: No Traveled to known affect area: No History of Present Illness HPI This 75-year-old male is complaining of shortness of breath and chest pain. He has a history of asthma or COPD. He smoked cigars in the past but stopped smoking. He never smoked cigarettes. He sees Dr. crabtree and saw him yesterday and received an injection of steroids. He uses nebulizers and inhalers for his breathing problems. He also has a history of coronary artery disease. He had a non-STEMI in March of this year and had a stent placed at that time. He had a repeat catheterization in May because of abnormal perfusion studies but at that time no intervention was performed. He does have occasional chest pain and today while he was coming to the hospital he had about 5-10 minutes of substernal pressure type pain. He has been short of breath for several days. He says that he was sweating a lot earlier. He is not bringing up any phlegm. He is not aware of any fever. He says that he gets quite lightheaded with this shortness of breath and has been unsteady on his feet. He was recently in [place] and had multiple attacks of shortness of breath. He says he feels like his throat is very congested. He does have a history of anxiety pills that he takes forward on an as-needed basis PFSH Past Medical History Arthritis: Yes (RIGHT KNEE) Asthma: Yes Anxiety: Yes Depression: Yes Cancer: No Cardiovascular Problems: Yes (CAD) High Cholesterol: Yes Chest Pain: No Diabetes: No Diminished Hearing: Yes Endocrine: No Gastrointestinal Disorders: Yes (ESOPHEGEAL REFLUX) GERD: Yes Glaucoma: No Genitourinary: No Hepatitis: No Hiatal Hernia: No Hypertension: Yes Immune Disorder: No Implanted Vascular Access Dvce: No Musculoskeletal: Yes Neurologic: No Psychiatric: Yes Reproductive: No Respiratory: Yes (WHEEZING) Integumentary: No Thyroid Disease: No Past Surgical History Genitourinary Surgery: Yes (KIDNEYS, APPENDIX) Other Surgery: Yes Social History Alcohol Use: Yes (occ) Tobacco Use: Yes (quit smoking cigars 2 weeks ago) Substance Use: No Allergies-Medications (Allergen,Severity, Reaction): Coded Allergies: No Known Allergies (Unverified , 11/11/16) Reported Meds & Prescriptions Reported Meds & Active Scripts Active Aspirin EC (Aspirin) 81 Mg Tabdr 81 Mg PO DAILY 30 Days Brilinta (Ticagrelor) 90 Mg Tab 90 Mg PO BID 30 Days Enalapril (Enalapril Maleate) 5 Mg Tab 5 Mg PO BID 30 Days Reported Proair Hfa 8.5 GM Inh (Albuterol Sulfate) 90 Mcg/Act Aer 2 Puff INH Q4-6H PRN 108 mcg/actuation Flovent Hfa 10.6 GM Inh (Fluticasone Propionate) 44 Mcg/Act Inh 2 Puff INH DAILY Use daily at the same time. Simvastatin 40 Mg Tab 40 Mg PO HS Tamsulosin (Tamsulosin HCl) 0.4 Mg Cap 0.4 Mg PO HS Myrbetriq (Mirabegron) 50 Mg Tab 50 Mg PO DAILY Review of Systems General / Constitutional: No: Fever, Chills, Weight Gain, Weight Loss Eyes: No: Diploplia, Blurred Vision HENT: Positive: Lightheadedness, No: Headaches, Vertigo Cardiovascular: Positive: Chest Pain or Discomfort, No: Irregular Rhythm Respiratory: Positive: Cough, Shortness of Breath Gastrointestinal: No: Nausea, Vomiting Genitourinary: No: Frequency Musculoskeletal: No: Myalgias, Arthralgias Skin: No Rash, No Itching Neurologic: Positive: Weakness, Dizziness Endocrine: No: Heat Intolerance Hematologic/Lymphatic: No: Easy Bruising Physical Exam Narrative GENERAL: Well-developed male SKIN: Focused skin assessment warm/dry. HEAD: Atraumatic. Normocephalic. EYES: Pupils equal and round. No scleral icterus. No injection or drainage. ENT: No nasal bleeding or discharge. Mucous membranes pink and moist. NECK: Trachea midline. No JVD. CARDIOVASCULAR: Regular rate and rhythm. No murmur appreciated. RESPIRATORY: There are occasional rhonchi and wheezes. Breath sounds equal bilaterally. GASTROINTESTINAL: Abdomen soft, non-tender, nondistended. Hepatic and splenic margins not palpable. MUSCULOSKELETAL: No obvious deformities. No clubbing. No cyanosis. Trace edema. NEUROLOGICAL: Awake and alert. No obvious cranial nerve deficits. Motor grossly within normal limits. Normal speech. PSYCHIATRIC: Appropriate mood and affect; insight and judgment normal. Data Data Last Documented VS Vital Signs Date Time Temp Pulse Resp B/P (MAP) Pulse Ox O2 Delivery O2 Flow Rate FiO2 11/11/16 15:57 98 Room Air 11/11/16 15:41 97.8 76 18 138/82 (100) Orders Orders Complete Blood Count With Diff (11/11/16 15:50) Comprehensive Metabolic Panel (11/11/16 15:50) B-Type Natriuretic Peptide (11/11/16 15:50) Act Partial Throm Time (Ptt) (11/11/16 15:50) Prothrombin Time / Inr (Pt) (11/11/16 15:50) Troponin I (11/11/16 15:50) Urinalysis - C+S If Indicated (11/11/16 15:50) Iv Access Insert/Monitor (11/11/16 15:50) Electrocardiogram (11/11/16 15:50) Ecg Monitoring (11/11/16 15:50) Oximetry (11/11/16 15:50) Oxygen Administration (11/11/16 15:50) Chest, Single Ap (11/11/16 15:50) Sodium Chloride 0.9% Flush (Ns Flush) (11/11/16 16:00) Methylprednisolone So Succ Inj (Solumedr (11/11/16 16:00) Albuterol-Ipratropium Neb (Duoneb Neb) (11/11/16 16:00) Ondansetron Inj (Zofran Inj) (11/11/16 16:45) Labs Laboratory Tests Test 11/11/16 16:14 White Blood Count 10.9 TH/MM3 Red Blood Count 4.36 MIL/MM3 Hemoglobin 13.9 GM/DL Hematocrit 40.6 % Mean Corpuscular Volume 93.1 FL Mean Corpuscular Hemoglobin 32.0 PG Mean Corpuscular Hemoglobin Concent 34.4 % Red Cell Distribution Width 13.0 % Platelet Count 213 TH/MM3 Mean Platelet Volume 7.7 FL Neutrophils (%) (Auto) 82.7 % Lymphocytes (%) (Auto) 8.8 % Monocytes (%) (Auto) 4.5 % Eosinophils (%) (Auto) 2.2 % Basophils (%) (Auto) 1.8 % Neutrophils # (Auto) 9.0 TH/MM3 Lymphocytes # (Auto) 1.0 TH/MM3 Monocytes # (Auto) 0.5 TH/MM3 Eosinophils # (Auto) 0.2 TH/MM3 Basophils # (Auto) 0.2 TH/MM3 CBC Comment DIFF FINAL Differential Comment Prothrombin Time 10.1 SEC Prothromb Time International Ratio 0.9 RATIO Activated Partial Thromboplast Time 28.1 SEC Blood Urea Nitrogen 19 MG/DL Creatinine 1.30 MG/DL Random Glucose 115 MG/DL Total Protein 7.7 GM/DL Albumin 3.5 GM/DL Calcium Level 9.1 MG/DL Alkaline Phosphatase 92 U/L Aspartate Amino Transf (AST/SGOT) 45 U/L Alanine Aminotransferase (ALT/SGPT) 31 U/L Total Bilirubin 0.7 MG/DL Sodium Level 136 MEQ/L Potassium Level 4.9 MEQ/L Chloride Level 106 MEQ/L Carbon Dioxide Level 22.3 MEQ/L Anion Gap 8 MEQ/L Estimat Glomerular Filtration Rate 54 ML/MIN Troponin I LESS THAN 0.02 NG/ML B-Type Natriuretic Peptide 23 PG/ML MDM Medical Decision Making Medical Screen Exam Complete: Yes Emergency Medical Condition: Yes Medical Record Reviewed: Yes Differential Diagnosis Differential includes pneumonia, COPD exacerbation, CHF Narrative Course Patient has been given repeated nebulizer treatments. He has paroxysms of shortness of breath when he feels like his throat is very congested. Chest x- rays read as normal. His BNP is normal. EKG shows normal sinus rhythm. Troponin is normal and is complaining of ongoing dyspnea. His saturations have been stable. Diagnosis Primary Impression: COPD exacerbation Additional Impression: Chest pain Eleuterio Gandhi MD Nov 11, 2016 15:57
[2016-11-11] MEDS ORDERED: methylPREDNISolone SOD SUCC 125 MG/2 ML VIAL IVP ONE (16:00)
[2016-11-11] MEDS ORDERED: SODIUM CHLORIDE 0.9% FLUSH 10 ML FLUSH IVF PRN (16:00)
[2016-11-11] MEDS: RESP: ALBUTEROL 2.5 MG/IPRATROPIUM 0.5 MG NEB (SCH) INH ×3 (16:14→19:52)
[2016-11-11 16:25] LABS: BASOPHIL # 0.2 TH/MM3 (0-0.2); BASOPHIL % 1.8 % (0.0-2.0); EOSINOPHIL # 0.2 TH/MM3 (0-0.4); EOSINOPHIL % 2.2 % (0.0-4.0); HEMATOCRIT 40.6 % (39.0-51.0); HEMO FLAGS DIFF FINAL; LYMPH % 8.8 % (9.0-44.0); MEAN CELL VOLUME 93.1 FL (80.0-100.0); MEAN CORPUSCULAR HGB CONC 34.4 % (32.0-36.0); MONO % 4.5 % (0.0-8.0); NEUT % 82.7 % (16.0-70.0); PLATELET COUNT 213 TH/MM3 (150-450); RED BLOOD COUNT 4.36 MIL/MM3 (4.50-5.90); WHITE BLOOD COUNT 10.9 TH/MM3 (4.0-11.0)
[2016-11-11 16:30] VITALS: O2SAT 99
--- NOTE | 2016-11-11 16:32 | RADRPT ---
EXAM DATE/TIME: 11/11/2016 16:22 [facility] COMPARISON: CHEST SINGLE AP, April 08, 2016, 12:02. INDICATIONS : Chest pain and short of breath. MEDICAL HISTORY : Myocardial infarction. Asthma SURGICAL HISTORY : None. ENCOUNTER: Initial ACUITY: 1 day PAIN SCORE: 5/10 LOCATION: Bilateral chest FINDINGS: The examination demonstrates mild cardiomegaly. There diffuse chronic interstitial changes. The lungs are otherwise clear. The visualized bony structures are grossly intact. CONCLUSION: 1. Cardiomegaly and chronic interstitial changes. No acute abnormality. Lee Serrato MD on November 11, 2016 at 16:29 Board Certified Radiologist. This report was verified electronically.
[2016-11-11 16:33] LABS: CHLORIDE 106 MEQ/L (98-107); SODIUM (NA) 136 MEQ/L (136-145)
[2016-11-11 16:38] LABS: APTT (PATIENT) 28.1 SEC (24.3-30.1); INTERNATIONAL NORMALIZED RATIO 0.9 RATIO; PROTHROMBIN TIME - PATIENT 10.1 SEC (9.8-11.6)
[2016-11-11 16:40] LABS: ANION GAP 8 MEQ/L (5-15); BICARBONATE 22.3 MEQ/L (21.0-32.0); BLOOD UREA NITROGEN 19 MG/DL (7-18)
[2016-11-11 16:43] LABS: ALT (GPT) 31 U/L (12-78); AST (GOT) 45 U/L (15-37); GLOMERULAR FILTRATION RATE 54 ML/MIN (>89)
[2016-11-11 16:44] LABS: TOTAL BILIRUBIN ADULT 0.7 MG/DL (0.2-1.0)
[2016-11-11] MEDS ORDERED: ONDANSETRON HCL 4 MG/2 ML VIAL IV PUSH ONE (16:45)
[2016-11-11 16:46] LABS: ALKALINE PHOSPHATASE 92 U/L (45-117)
[2016-11-11 16:49] LABS: POTASSIUM 4.9 MEQ/L (3.5-5.1)
[2016-11-11] MEDS ORDERED: IOHEXOL 350 MG/ML 10 ML VIAL (for RAD DIAG) IVCONTRAST ONE (17:27)
[2016-11-11] MEDS ORDERED: LORazepam 0.5 MG TAB PO PRN (17:30)
[2016-11-11] MEDS ORDERED: BISACODYL 10 MG SUPP RECTAL PRN (17:30)
[2016-11-11] MEDS ORDERED: NALOXONE HCL 0.4 MG/ML AMP IV PRN (17:30)
[2016-11-11] MEDS ORDERED: ONDANSETRON HCL 4 MG/2 ML VIAL IVP PRN (17:30)
[2016-11-11] MEDS ORDERED: MAGNESIUM HYDROXIDE SUSP 30 ML CUP PO PRN (17:30)
[2016-11-11] MEDS ORDERED: NITROGLYCERIN 0.4 MG SL 25 TABS/BTL SL PRN (17:30)
[2016-11-11] MEDS ORDERED: RESP: ALBUTEROL 2.5 MG/3 ML NEB (PRN) INH (17:30)
[2016-11-11] MEDS ORDERED: SENNOSIDES 8.6 MG TAB PO PRN (17:30)
[2016-11-11] MEDS ORDERED: SODIUM CHLORIDE 0.9% FLUSH 10 ML FLUSH IV FLUSH PRN (17:30)
[2016-11-11] MEDS ORDERED: LACTULOSE SYRUP 20 GM/30 ML CUP PO PRN (17:30)
[2016-11-11] MEDS ORDERED: ACETAMINOPHEN 325 MG TAB PO PRN ×2 (17:30)
[2016-11-11] MEDS ORDERED: LORazepam 2 MG/ML VIAL ONE (18:09)
[2016-11-11] MEDS ORDERED: ASPIRIN 81 MG CHEW TAB CHEW ONE (18:15)
[2016-11-11 18:27] VITALS: BP 179/95; PULSE 72; RESP 18; O2SAT 98
--- NOTE | 2016-11-11 18:36 | HHI.HP ---
[facility] Isak Escudero MD Admission Diagnosis COPD EXACERBATION, CHEST PAIN Diagnoses: Chief Complaint: Shortness of breath Travel History International Travel<30 Days: No Contact w/Intl Traveler <30 Da: No Traveled to Known Affected Are: No History of Present Illness This is a 75 year-old male with a history of anxiety, depression, arthritis right knee, coronary artery disease status post stent, hyperlipidemia, hypertension and GERD . States he has chronic dyspnea worse over the last 2 weeks associated with wheezing. Reports his dyspnea is worse when he is laying down. He has been using his inhalers, nebulizers and received steroid shots from his finisher denture. No fever or chills but has nonproductive cough. He was in [place] recently and had multiple attacks of shortness of breath associated with lightheadedness and being unsteady on his feet. Denies leg pain or swelling. No history of DVT/PE. He also feels his throat is congested with mucus. Denies odynophagia or dysphagia. En route to the hospital, he developed 10 minutes of retrosternal pressure without radiation associated with diaphoresis. Has history of coronary artery disease status post [place] status post stent in March 2016. Repeat heart catheterization in May 2016 showed widely patent right coronary artery stent, moderate disease of the mid LAD and of the proximal left circumflex within normal ventral function with estimated ejection fraction of 35%. All other systems reviewed negative Review of Systems Except as stated in HPI: all other systems reviewed are Neg Past Family Social History Past Medical History As previously mentioned Past Surgical History As previously mentioned. Kidney surgery and appendectomy Reported Medications Aspirin EC (Aspirin) 81 Mg Tabdr 81 Mg PO DAILY 30 Days Brilinta (Ticagrelor) 90 Mg Tab 90 Mg PO BID 30 Days Enalapril (Enalapril Maleate) 5 Mg Tab 5 Mg PO BID 30 Days Reported Proair Hfa 8.5 GM Inh (Albuterol Sulfate) 90 Mcg/Act Aer 2 Puff INH Q4-6H PRN 108 mcg/actuation Flovent Hfa 10.6 GM Inh (Fluticasone Propionate) 44 Mcg/Act Inh 2 Puff INH DAILY Use daily at the same time. Simvastatin 40 Mg Tab 40 Mg PO HS Tamsulosin (Tamsulosin HCl) 0.4 Mg Cap 0.4 Mg PO HS Myrbetriq (Mirabegron) 50 Mg Tab 50 Mg PO DAILY Allergies: Coded Allergies: No Known Allergies (Unverified , 11/11/16) Family History Coronary artery disease Social History Quit cigar use 2 weeks ago. Occasional alcohol use. Lives with his Physical Exam Vital Signs Vital Signs Date Time Temp Pulse Resp B/P (MAP) Pulse Ox O2 Delivery O2 Flow Rate FiO2 11/11/16 16:30 99 21 11/11/16 15:57 98 Room Air 11/11/16 15:41 97.8 76 18 138/82 (100) 98 Physical Exam GENERAL: This is a well-nourished, well-developed patient who appears anxious SKIN: No rashes, ecchymoses or lesions. Cool and dry. HEAD: Atraumatic. Normocephalic. No temporal or scalp tenderness. EYES: Pupils equal round and reactive. Extraocular motions intact. No scleral icterus. No injection or drainage. ENT: Nose without bleeding, purulent drainage or septal hematoma. Throat without erythema, tonsillar hypertrophy or exudate. Uvula midline. Airway patent. NECK: Trachea midline. No JVD or lymphadenopathy. Supple, nontender, no meningeal signs. CARDIOVASCULAR: Regular rate and rhythm without murmurs, gallops, or rubs. RESPIRATORY: Clear to auscultation. Decreased Breath sounds equal bilaterally. No wheezes, rales, or rhonchi. GASTROINTESTINAL: Abdomen soft, non-tender, nondistended. No guarding. MUSCULOSKELETAL: Extremities without clubbing, cyanosis but with bilateral lower extremity trace pitting edema. No joint tenderness, effusion, or edema noted. No calf tenderness. Negative Homans sign bilaterally. NEUROLOGICAL: Awake and alert. Cranial nerves II through XII intact. Motor and sensory grossly within normal limits. Five out of 5 muscle strength in all muscle groups. Normal speech. Laboratory Laboratory Tests Test 11/11/16 16:14 White Blood Count 10.9 Red Blood Count 4.36 Hemoglobin 13.9 Hematocrit 40.6 Mean Corpuscular Volume 93.1 Mean Corpuscular Hemoglobin 32.0 Mean Corpuscular Hemoglobin Concent 34.4 Red Cell Distribution Width 13.0 Platelet Count 213 Mean Platelet Volume 7.7 Neutrophils (%) (Auto) 82.7 Lymphocytes (%) (Auto) 8.8 Monocytes (%) (Auto) 4.5 Eosinophils (%) (Auto) 2.2 Basophils (%) (Auto) 1.8 Neutrophils # (Auto) 9.0 Lymphocytes # (Auto) 1.0 Monocytes # (Auto) 0.5 Eosinophils # (Auto) 0.2 Basophils # (Auto) 0.2 CBC Comment DIFF FINAL Differential Comment Prothrombin Time 10.1 Prothromb Time International Ratio 0.9 Activated Partial Thromboplast Time 28.1 Blood Urea Nitrogen 19 Creatinine 1.30 Random Glucose 115 Total Protein 7.7 Albumin 3.5 Calcium Level 9.1 Alkaline Phosphatase 92 Aspartate Amino Transf (AST/SGOT) 45 Alanine Aminotransferase (ALT/SGPT) 31 Total Bilirubin 0.7 Sodium Level 136 Potassium Level 4.9 Chloride Level 106 Carbon Dioxide Level 22.3 Anion Gap 8 Estimat Glomerular Filtration Rate 54 Troponin I LESS THAN 0.02 B-Type Natriuretic Peptide 23 Result Diagram: 11/11/16 1614 11/11/16 1614 Imaging Last Impressions Chest X-Ray 11/11/16 1550 Signed Impressions: Service Date/Time: October 16:22 - CONCLUSION: 1. Cardiomegaly and chronic interstitial changes. No acute abnormality. MD Dane Currani VTE Risk Assessment Danei VTE Risk Assessment: Mod/High Risk (score >= 2) Caprini Risk Assessment Model Point Value = 1 Point Value = 2 Point Value = 3 Point Value = 5 Age 41-60 Minor surgery BMI > 25 kg/m2 Swollen legs Varicose veins or History of unexplained or recurrent spontaneous Oral contraceptives or hormone replacement Sepsis (< 1 month) Serious lung disease, including pneumonia (< 1 month) Abnormal pulmonary function Acute myocardial infarction Congestive heart failure (< 1 month) History of inflammatory bowel disease Medical patient at bed rest Age 61-74 Arthroscopic surgery Major open surgery (> 45 min) Laparoscopic surgery (> 45 min) Malignancy Confined to bed (> 72 hours) Immobilizing plaster cast Central venous access Age >= 75 History of VTE Family history of VTE Factor V Leiden Prothrombin [id number] Lupus anticoagulant Anticardiolipin antibodies Elevated serum homocysteine Heparin-induced thrombocytopenia Other congenital or acquired thrombophilia Stroke (< 1 month) Elective arthroplasty Hip, pelvis, or leg fracture Acute spinal cord injury (< 1 month) Prophylaxis Regimen Total Risk Factor Score Risk Level Prophylaxis Regimen 0-1 Low Early ambulation 2 Moderate Order ONE of the following: *Sequential Compression Device (SCD) *Heparin 5000 units SQ BID 3-4 Higher Order ONE of the following medications: *Heparin 5000 units SQ TID *Enoxaparin/Lovenox 40 mg SQ daily (WT < 150 kg, CrCl > 30 mL/min) *Enoxaparin/Lovenox 30 mg SQ daily (WT < 150 kg, CrCl > 10-29 mL/min) *Enoxaparin/Lovenox 30 mg SQ BID (WT < 150 kg, CrCl > 30 mL/min) AND/OR *Sequential Compression Device (SCD) 5 or more Highest Order ONE of the following medications: *Heparin 5000 units SQ TID (Preferred with Epidurals) *Enoxaparin/Lovenox 40 mg SQ daily (WT < 150 kg, CrCl > 30 mL/min) *Enoxaparin/Lovenox 30 mg SQ daily (WT < 150 kg, CrCl > 10-29 mL/min) *Enoxaparin/Lovenox 30 mg SQ BID (WT < 150 kg, CrCl > 30 mL/min) AND *Sequential Compression Device (SCD) Assessment and Plan Problem List: (1) Chest pain ICD Code: R07.9 - Chest pain, unspecified Status: Acute Assessment and Plan This is a 75 year-old male with a history of anxiety, depression, arthritis right knee, coronary artery disease status post stent, hyperlipidemia, hypertension and GERD . He presents with worsening dyspnea associated with wheezing despite inhalers, nebulizers and steroid shots from his finisher denture. En route to the hospital, he developed 10 minutes of retrosternal pressure without radiation associated with diaphoresis. Worsening dyspnea with bilateral lower extremity edema with failed outpatient therapy and recent travel. He has been treated by his finisher denture for asthma exacerbation with nebulizations and steroids shots. He was told he has other lung conditions but COPD has not been mentioned. He smokes cigars quit 2 weeks ago. Chest x-ray image interpreted by me with cardiomegaly and chronic interstitial changes. Continue oxygen, nebulizations, IV steroids and start Z- Amrit. Screen for influenza and check sputum culture. Obtain CTA to rule out for pulmonary embolism and echocardiogram to evaluate for right sided heart failure Chest pain with history of coronary artery disease status post NE status post stent in March 2016. Repeat heart catheterization in May 2016 showed widely patent right coronary artery stent, moderate disease of the mid LAD and of the proximal left circumflex within normal ventral function with estimated ejection fraction of 35%. EKG reviewed by me with sinus rhythm and nonspecific T-wave abnormality no significant change from previous. Trend cardiac enzymes. Aspirin 162 mg 1, he received his baby aspirin this morning. Continue aspirin, Brilinta and enalapril. Elevated AST on statin. Will hold Zocor for now Anxiety. Ativan as needed DVT prophylaxis with SCD and subcutaneous heparin Discussed Condition With Patient and Elieser Haynes MD Nov 11, 2016 18:36
[2016-11-11 18:39] LABS: BLOOD, URINE NEG (NEG); GLUCOSE,URINE NEG (NEG); KETONE, URINE NEG (NEG); NITRITE,URINE NEG (NEG)
[2016-11-11 18:51] LABS: COMMENT (UR) CULT NOT INDICATED; CULTURE IF INDICATED CULT NOT INDICATED; RBC, URINE 0-3 /hpf (0-3); SQUAMOUS EPITHELIAL CELL URINE 0-5 /hpf (0-5); URINE COLOR YELLOW (YELLW/STRAW); WBC, URINE 0-2 /hpf (0-5)
[2016-11-11] MEDS ORDERED: FLUT1INH INH (19:53)
[2016-11-11] MEDS ORDERED: MIRA50TA PO (19:53)
[2016-11-11] MEDS ORDERED: META48.53 PO (19:53)
[2016-11-11 19:55] VITALS: O2SAT 94
[2016-11-11] MEDS ORDERED: ALEN40TA PO (19:55)
[2016-11-11 20:00] VITALS: BP 142/83; PULSE 68; RESP 20; TEMP 97.2; O2SAT 94
[2016-11-11] MEDS: AZITHROMYCIN 250 MG TAB PO SCH (20:25)
[2016-11-11] MEDS: SODIUM CHLORIDE 0.9% FLUSH 10 ML FLUSH IV FLUSH SCH (22:00)
[2016-11-11] MEDS: TICAGRELOR 90 MG TAB PO SCH (22:01)
[2016-11-11] MEDS: DOCUSATE SODIUM 50 MG/SENNA 8.6 MG TAB PO SCH (22:01)
[2016-11-11] MEDS: TAMSULOSIN HCL 0.4 MG CAP PO SCH (22:01)
[2016-11-11] MEDS: ENALAPRIL MALEATE 5 MG TAB PO SCH (22:01)
[2016-11-11] MEDS: HEPARIN SODIUM - SQ 10,000 UNITS/ML VIAL SQ SCH (22:02)
[2016-11-11] MEDS: methylPREDNISolone SOD SUCC 125 MG/2 ML VIAL IVP SCH (22:02)
[2016-11-11 22:42] LABS: CREATINE KINASE 113 U/L (39-308)
[2016-11-12] VITALS (11 sets, daily range): BP systolic 131–150; BP diastolic 66–84; PULSE 79–102; RESP 19–22; TEMP 95.4–98.1; O2SAT 92–97
[2016-11-12] MEDS: HEPARIN SODIUM - SQ 10,000 UNITS/ML VIAL SQ SCH ×3 (04:57→21:23)
[2016-11-12] MEDS: methylPREDNISolone SOD SUCC 125 MG/2 ML VIAL IVP SCH ×4 (04:57→21:23)
[2016-11-12] MEDS: RESP: ALBUTEROL 2.5 MG/IPRATROPIUM 0.5 MG NEB (SCH) INH ×4 (07:19→20:06)
[2016-11-12 07:45] LABS: CREATINE KINASE 101 U/L (39-308)
[2016-11-12] MEDS ORDERED: MIRABEGRON 50 MG PO SCH (09:00)
[2016-11-12] MEDS: DOCUSATE SODIUM 50 MG/SENNA 8.6 MG TAB PO SCH ×2 (09:49→21:22)
[2016-11-12] MEDS: ENALAPRIL MALEATE 5 MG TAB PO SCH ×2 (09:50→21:22)
[2016-11-12] MEDS: AZITHROMYCIN 250 MG TAB PO SCH (09:50)
[2016-11-12] MEDS: SODIUM CHLORIDE 0.9% FLUSH 10 ML FLUSH IV FLUSH SCH ×2 (09:52→21:23)
[2016-11-12] MEDS: FLUTICASONE PROPIONATE 44 MCG/ACT 10.6 GM INHALER INH SCH (09:59)
[2016-11-12] MEDS: TICAGRELOR 90 MG TAB PO SCH ×2 (09:59→21:22)
--- NOTE | 2016-11-12 10:49 | ECHRPT ---
Indication: Heart failure, unspecified CONCLUSIONS Poor echocardiographic windows Normal left ventricular size. There is assymetric septal hypertrophy. The left ventricular systolic function is normal with an estimated ejection fraction in the range of 55-60%. Vwuxy-aa-waok mitral valve regurgitation. There is mild tricuspid valve regurgitation. BP: / HR: Rhythm: Sinus MEASUREMENTS (Male / Female) Normal Values Technical Quality:Technically difficult study 2D ECHO LV Diastolic Diameter PLAX 5.5 cm 4.2 - 5.9 / 3.9 - 5.3 cm LV Systolic Diameter PLAX 4.2 cm IVS Diastolic Thickness 1.5 cm 0.6 - 1.0 / 0.6 - 0.9 cm LVPW Diastolic Thickness 0.8 cm 0.6 - 1.0 / 0.6 - 0.9 cm LV Relative Wall Thickness 0.4 RV Internal Dim ED PLAX 2.8 cm M-MODE Aortic Root Diameter MM 3.5 cm LA Systolic Diameter MM 4.1 cm LA Ao Ratio MM 1.2 AV Cusp Separation MM 2.2 cm DOPPLER Mitral E Point Velocity 49.9 cm/s Mitral A Point Velocity 75.0 cm/s Mitral E to A Ratio 0.7 LV E' Lateral Velocity 7.7 cm/s Mitral E to LV E' Lateral Ratio 6.5 LV E' Septal Velocity 7.0 cm/s Mitral E to LV E' Septal Ratio 7.1 FINDINGS LEFT VENTRICLE Normal left ventricular size. There is assymetric septal hypertrophy. The left ventricular systolic function is normal with an estimated ejection fraction in the range of 55-60%. RIGHT VENTRICLE Normal right ventricular size and systolic function. LEFT ATRIUM The left atrial size is normal. RIGHT ATRIUM The right atrial size is normal. ATRIAL SEPTUM Normal atrial septal thickness without atrial level shunting by limited color doppler interrogation. AORTA The aortic root and proximal ascending aorta are normal in size on limited imaging. MITRAL VALVE Structurally normal mitral valve. Dwzyb-aq-ipqy mitral valve regurgitation. AORTIC VALVE Trileaflet aortic valve. No aortic valve stenosis or regurgitation. TRICUSPID VALVE Structurally normal tricuspid valve. There is mild tricuspid valve regurgitation. PULMONARY VALVE The pulmonary valve is not well visualized. VESSELS The inferior vena cava is normal in size. PERICARDIUM No pericardial effusion. oJse Enrique Menezes MD (Electronically Signed) Final Date:12 November 2016 10:48
[2016-11-12] MEDS ORDERED: LORazepam 2 MG/ML VIAL IV PUSH ONE (11:30)
--- NOTE | 2016-11-12 11:37 | HHI.PR ---
Subjective Remarks Follow-up dyspnea. Improving shortness of breath. Complains of nausea. He refused CTA last night secondary to claustrophobia. He agrees if he receives angiolytic. Discussed with and RN Objective Vitals Vital Signs Date Time Temp Pulse Resp B/P (MAP) Pulse Ox O2 Delivery O2 Flow Rate FiO2 11/12/16 10:00 82 11/12/16 08:15 95.4 85 19 150/84 (106) 92 11/12/16 07:26 94 21 11/12/16 05:26 79 11/12/16 04:49 96.5 83 20 131/73 (92) 96 11/12/16 00:00 96.3 83 22 150/84 (106) 92 11/11/16 20:00 97.2 68 20 142/83 (102) 94 11/11/16 19:55 94 21 11/11/16 18:49 11/11/16 18:27 72 18 179/95 (123) 98 Room Air 11/11/16 16:30 99 21 11/11/16 15:57 98 Room Air 11/11/16 15:41 97.8 76 18 138/82 (100) 98 I/O 11/11/16 11/11/16 11/11/16 11/12/16 11/12/16 11/12/16 07:00 15:00 23:00 07:00 15:00 23:00 Intake Total 240 ml 420 ml 350 ml Output Total 450 ml Balance 240 ml -30 ml 350 ml Intake Oral 240 ml 420 ml 350 ml Output Urine Total 450 ml # Bowel Movements 1 Result Diagram: 11/11/16 1614 11/11/16 1614 Objective Remarks Well-developed, obese in no distress Pupils equally reactive to light no jaundice Equal in expansion decreased breath sounds Regular rate and rhythm Abdomen soft obese nontender Extremities no cyanosis improving pedal edema Alert and oriented nonfocal Procedures none A/P Problem List: (1) Chest pain ICD Code: R07.9 - Chest pain, unspecified Status: Acute Assessment and Plan This is a 75 year-old male with a history of anxiety, depression, arthritis right knee, coronary artery disease status post stent, hyperlipidemia, hypertension and GERD . He presents with worsening dyspnea associated with wheezing despite inhalers, nebulizers and steroid shots from his snuff container inspector. En route to the hospital, he developed 10 minutes of retrosternal pressure without radiation associated with diaphoresis. Worsening dyspnea with bilateral lower extremity edema with failed outpatient therapy and recent travel. He has been treated by his snuff container inspector for asthma exacerbation with nebulizations and steroids shots. He was told he has other lung conditions but COPD has not been mentioned. He smokes cigars quit 2 weeks ago. Chest x-ray image interpreted by me with cardiomegaly and chronic interstitial changes. Negative screen for influenza. Continue oxygen, nebulizations, IV steroids and Z-Amrit. Follow-up sputum culture. Obtain CTA to rule out for pulmonary embolism (shortness of breath, chest pain and recent travel) and echocardiogram to evaluate for right sided heart failure Chest pain with history of coronary artery disease status post [place] status post stent in March 2016. Repeat heart catheterization in May 2016 showed widely patent right coronary artery stent, moderate disease of the mid LAD and of the proximal left circumflex within normal ventral function with estimated ejection fraction of 35%. EKG reviewed by me with sinus rhythm and nonspecific T-wave abnormality no significant change from previous. Negative cardiac enzymes. Continue aspirin, Brilinta and enalapril. Elevated AST on statin. Will hold Zocor for now Anxiety. Ativan as needed DVT prophylaxis with SCD and subcutaneous heparin Discharge Planning Possible discharge in 1-2 days Elieser Haynes MD Nov 12, 2016 11:37
--- NOTE | 2016-11-12 11:41 | EKG ---
Date Performed: 11/12/2016 Time Performed: 05:25:13 PTAGE: 75 years EKG: Sinus rhythm NONSPECIFIC T-WAVE ABNORMALITY BORDERLINE ECG Compared to prior tracing no significant change PREVIOUS TRACING : 11/11/2016 22.06 DOCTOR: Unruly Chauhan Interpretating Date/Time 11/12/2016 11:39:47
--- NOTE | 2016-11-12 11:42 | EKG ---
Date Performed: 11/11/2016 Time Performed: 15:40:57 PTAGE: 75 years EKG: Sinus rhythm NONSPECIFIC T-WAVE ABNORMALITY BORDERLINE ECG Compared to prior tracing no significant change PREVIOUS TRACING DOCTOR: Unruly Chauhan Interpretating Date/Time 11/12/2016 11:40:19
--- NOTE | 2016-11-12 11:42 | EKG ---
Date Performed: 11/11/2016 Time Performed: 22:06:16 PTAGE: 75 years EKG: Sinus rhythm NONSPECIFIC T-WAVE ABNORMALITY ABNORMAL ECG Compared to prior tracing no significant change PREVIOUS TRACING : 11/11/2016 15.40 DOCTOR: Unruly Chauhan Interpretating Date/Time 11/12/2016 11:39:57
[2016-11-12] MEDS ORDERED: AZIT250T3 PO (14:42)
[2016-11-12] MEDS ORDERED: PRED20 PO (14:42)
--- NOTE | 2016-11-12 14:42 | HHI.DCPOC ---
Discharge Care Plan Diagnosis: (1) COPD exacerbation (2) Chest pain Your Health Problems Are: Difficulty with ADL Exercise Tolerance Goals to Promote Your Health * To prevent worsening of your condition and complications * To maintain your health at the optimal level Directions to Meet Your Goals Take your medications as prescribed Follow your dietary instruction Follow activity as directed Keep your appointments as scheduled Take your immunizations and boosters as scheduled If your symptoms worsen call your PCP, if no PCP go to Urgent Care Center or Emergency Room Smoking is Dangerous to Your Health. Avoid second hand smoke Call the 24-hour hour crisis hotline for domestic abuse at Elieser Haynes MD Nov 12, 2016 14:42
--- NOTE | 2016-11-12 20:30 | RADRPT ---
EXAM DATE/TIME: 11/12/2016 19:47 [facility] COMPARISON: CHEST SINGLE AP, November 11, 2016, 16:22. INDICATIONS : Chest pain. Short of breath. IV CONTRAST: 75 cc Omnipaque 350 (iohexol) IV RADIATION DOSE: 19.03 CTDIvol (mGy) MEDICAL HISTORY : Chronic obstructive pulmonary disease. Myocardial infarction. Hypertension.Asthma. SURGICAL HISTORY : None. ENCOUNTER: Initial ACUITY: 1 day PAIN SCALE: 6/10 LOCATION: chest TECHNIQUE: Volumetric scanning of the chest was performed using a pulmonary embolism protocol MIP images were re constructed. Using automated exposure control and adjustment of the mA and/or kV according to patien t size, radiation dose was kept as low as reasonably achievable to obtain optimal diagnostic quality images. DICOM format image data is available electronically for review and comparison. Follow-up recommendations for detected pulmonary nodules are based at a minimum on nodule size and pa tient risk factors according to Fleischner Society Guidelines. FINDINGS: PULMONARY ARTERIES: No filling defects are seen in the pulmonary arteries through the segmental level. LUNGS: There is no consolidation or pneumothorax . No concerning pulmonary nodule is visualized. PLEURAE: There is no pleural thickening or pleural effusion. MEDIASTINUM: Calcified mediastinal and right hilar lymph nodes are seen. Heart size within normal limits. There is coronary artery calcification, most conspicuous at the left anterior descending. MUSCULOSKELETAL: Within normal limits for patient age. MISCELLANEOUS: Numerous tiny calcified granulomata are scattered throughout the visualized liver and spleen CONCLUSION: 1. No pulmonary embolus or other acute cardiopulmonary disease. 2. Old granulomatous disease. 3. Coronary artery calcification. Fareed Kelsey MD on November 12, 2016 at 20:26 Board Certified Radiologist. This report was verified electronically.
[2016-11-12] MEDS: TAMSULOSIN HCL 0.4 MG CAP PO SCH (21:22)
[2016-11-13 00:01] VITALS: BP 139/78; PULSE 86; RESP 18; TEMP 96.1; O2SAT 96
[2016-11-13 04:28] VITALS: BP 133/68; PULSE 77; RESP 18; TEMP 96.5; O2SAT 95
[2016-11-13] MEDS: HEPARIN SODIUM - SQ 10,000 UNITS/ML VIAL SQ SCH (05:56)
[2016-11-13] MEDS: methylPREDNISolone SOD SUCC 125 MG/2 ML VIAL IVP SCH ×2 (05:56→09:14)
[2016-11-13 08:00] VITALS: BP 148/85; PULSE 75; RESP 17; TEMP 96; O2SAT 98
[2016-11-13] MEDS: RESP: ALBUTEROL 2.5 MG/IPRATROPIUM 0.5 MG NEB (SCH) INH (08:01)
[2016-11-13 08:02] VITALS: O2SAT 97
[2016-11-13] MEDS: AZITHROMYCIN 250 MG TAB PO SCH (08:11)
[2016-11-13] MEDS: DOCUSATE SODIUM 50 MG/SENNA 8.6 MG TAB PO SCH (08:11)
[2016-11-13] MEDS: ENALAPRIL MALEATE 5 MG TAB PO SCH (08:11)
[2016-11-13] MEDS: TICAGRELOR 90 MG TAB PO SCH (08:12)
[2016-11-13] MEDS: FLUTICASONE PROPIONATE 44 MCG/ACT 10.6 GM INHALER INH SCH (08:13)
[2016-11-13] MEDS: SODIUM CHLORIDE 0.9% FLUSH 10 ML FLUSH IV FLUSH SCH (08:14)
[2016-11-13] MEDS ORDERED: ASPIRIN 325 MG TAB PO SCH (09:00)
--- NOTE | 2016-11-13 12:00 | HHI.PR ---
Subjective Remarks Follow-up COPD. He is feeling better denies shortness of breath and wheezing. He is ambulatory. CTA and echocardiogram results discussed with patient. He wants to be discharged today. Discussed with RN Objective Vitals Vital Signs Date Time Temp Pulse Resp B/P (MAP) Pulse Ox O2 Delivery O2 Flow Rate FiO2 11/13/16 08:02 97 Nasal Cannula 2.00 11/13/16 08:00 96.0 75 17 148/85 (106) 98 11/13/16 04:28 96.5 77 18 133/68 (89) 95 11/13/16 00:01 96.1 86 18 139/78 (98) 96 11/12/16 20:16 96.6 91 20 136/66 (89) 95 11/12/16 20:15 90 11/12/16 20:06 97 21 11/12/16 18:46 97.0 92 19 140/71 (94) 95 11/12/16 12:18 98.1 102 19 133/67 (89) 94 I/O 11/12/16 11/12/16 11/12/16 11/13/16 11/13/16 11/13/16 06:59 14:59 22:59 06:59 14:59 22:59 Intake Total 420 ml 650 ml 250 ml 240 ml Output Total 450 ml Balance -30 ml 650 ml 250 ml 240 ml Intake Oral 420 ml 650 ml 250 ml 240 ml Output Urine Total 450 ml # Voids 2 2 1 # Bowel Movements 1 Result Diagram: 11/11/16 1614 11/11/16 [address] Angiography 11/12/16 0000 Signed Impressions: Service Date/Time: Saturday, November 12, 2016 19:47 - CONCLUSION: 1. No pulmonary embolus or other acute cardiopulmonary disease. 2. Old granulomatous disease. 3. Coronary artery calcification. Fareed Kelsey MD Chest X-Ray 11/11/16 1550 Signed Impressions: Service Date/Time: October 16:22 - CONCLUSION: 1. Cardiomegaly and chronic interstitial changes. No acute abnormality. Lee Serrato MD Objective Remarks Well-developed, obese in no distress Pupils equally reactive to light no jaundice Equal in expansion decreased breath sounds Regular rate and rhythm Abdomen soft obese nontender, reducible abdominal hernia Extremities no cyanosis improving pedal edema Alert and oriented nonfocal Procedures none A/P Problem List: (1) Chest pain ICD Code: R07.9 - Chest pain, unspecified Status: Acute Assessment and Plan This is a 75 year-old male with a history of anxiety, depression, arthritis right knee, coronary artery disease status post stent, hyperlipidemia, hypertension and GERD . He presents with worsening dyspnea associated with wheezing despite inhalers, nebulizers and steroid shots from his waiter and cashier. En route to the hospital, he developed 10 minutes of retrosternal pressure without radiation associated with diaphoresis. Worsening dyspnea with bilateral lower extremity edema with failed outpatient therapy and recent travel. He has been treated by his waiter and cashier for asthma exacerbation with nebulizations and steroids shots. He was told he has other lung conditions but COPD has not been mentioned. He smokes cigars quit 2 weeks ago. Chest x-ray image interpreted by me with cardiomegaly and chronic interstitial changes. Negative screen for influenza. Improved. Continue oxygen, nebulizations, steroids and Z-Amrit. Switch to by mouth steroids . Follow -up sputum culture. CTA negative for pulmonary embolism (shortness of breath, chest pain and recent travel) and echocardiogram EF 55% with mild MR and TR Chest pain with history of coronary artery disease status post [place] status post stent in March 2016. Repeat heart catheterization in May 2016 showed widely patent right coronary artery stent, moderate disease of the mid LAD and of the proximal left circumflex within normal ventral function with estimated ejection fraction of 35%. EKG reviewed by me with sinus rhythm and nonspecific T-wave abnormality no significant change from previous. Negative cardiac enzymes. Continue aspirin, Brilinta and enalapril. Elevated AST on statin. Will hold Zocor for now. Outpatient follow-up Anxiety. Ativan as needed DVT prophylaxis with SCD and subcutaneous heparin Discharge Planning Stable for discharge. He has significantly improved earlier than anticipated. Elieser Haynes MD Nov 13, 2016 12:00
--- NOTE | 2016-11-13 12:02 | HHI.DS ---
Discharge Summary Admission Date Nov 11, 2016 at 17:26 Discharge Date: Nov 13, 2016 Admitting Diagnosis COPD EXACERBATION, CHEST PAIN (1) Chest pain ICD Code: R07.9 - Chest pain, unspecified Diagnosis: Principal Status: Acute Procedures none Brief History - From Admission This is a 75 year-old male with a history of anxiety, depression, arthritis right knee, coronary artery disease status post stent, hyperlipidemia, hypertension and GERD . States he has chronic dyspnea worse over the last 2 weeks associated with wheezing. Reports his dyspnea is worse when he is laying down. He has been using his inhalers, nebulizers and received steroid shots from his underwriting support manager. No fever or chills but has nonproductive cough. He was in [place] recently and had multiple attacks of shortness of breath associated with lightheadedness and being unsteady on his feet. Denies leg pain or swelling. No history of DVT/PE. He also feels his throat is congested with mucus. Denies odynophagia or dysphagia. En route to the hospital, he developed 10 minutes of retrosternal pressure without radiation associated with diaphoresis. Has history of coronary artery disease status post [place] status post stent in March 2016. Repeat heart catheterization in May 2016 showed widely patent right coronary artery stent, moderate disease of the mid LAD and of the proximal left circumflex within normal ventral function with estimated ejection fraction of 35%. All other systems reviewed negative CBC/BMP: 11/11/16 1614 11/11/16 1614 Significant Findings Laboratory Tests Test 11/11/16 16:14 11/11/16 18:21 11/11/16 22:12 11/12/16 06:10 Red Blood Count 4.36 MIL/MM3 (4.50-5.90) Neutrophils (%) (Auto) 82.7 % (16.0-70.0) Lymphocytes (%) (Auto) 8.8 % (9.0-44.0) Neutrophils # (Auto) 9.0 TH/MM3 (1.8-7.7) Blood Urea Nitrogen 19 MG/DL (7-18) Random Glucose 115 MG/DL (74-106) Aspartate Amino Transf (AST/SGOT) 45 U/L (15-37) Estimat Glomerular Filtration Rate 54 ML/MIN (>89) Troponin I LESS THAN 0.02 NG/ML LESS THAN 0.02 NG/ML LESS THAN 0.02 NG/ML Imaging Last Impressions CT Angiography 11/12/16 0000 Signed Impressions: Service Date/Time: Saturday, November 12, 2016 19:47 - CONCLUSION: 1. No pulmonary embolus or other acute cardiopulmonary disease. 2. Old granulomatous disease. 3. Coronary artery calcification. Fareed Kelsey MD Chest X-Ray 11/11/16 1550 Signed Impressions: Service Date/Time: October 16:22 - CONCLUSION: 1. Cardiomegaly and chronic interstitial changes. No acute abnormality. Lee Serrato MD PE at Discharge Well-developed, obese in no distress Pupils equally reactive to light no jaundice Equal in expansion decreased breath sounds Regular rate and rhythm Abdomen soft obese nontender, reducible abdominal hernia Extremities no cyanosis improving pedal edema Alert and oriented nonfocal Hospital Course This is a 75 year-old male with a history of anxiety, depression, arthritis right knee, coronary artery disease status post stent, hyperlipidemia, hypertension and GERD . He presents with worsening dyspnea associated with wheezing despite inhalers, nebulizers and steroid shots from his underwriting support manager. En route to the hospital, he developed 10 minutes of retrosternal pressure without radiation associated with diaphoresis. Worsening dyspnea with bilateral lower extremity edema with failed outpatient therapy and recent travel. He has been treated by his underwriting support manager for asthma exacerbation with nebulizations and steroids shots. He was told he has other lung conditions but COPD has not been mentioned. He smokes cigars quit 2 weeks ago. Chest x-ray image interpreted by me with cardiomegaly and chronic interstitial changes. Negative screen for influenza. Improved. Continue oxygen, nebulizations, steroids and Z-Amrit. Switch to by mouth steroids . Follow -up sputum culture. CTA negative for pulmonary embolism (shortness of breath, chest pain and recent travel) and echocardiogram EF 55% with mild MR and TR . Needs PFTs Chest pain with history of coronary artery disease status post [place] status post stent in March 2016. Repeat heart catheterization in May 2016 showed widely patent right coronary artery stent, moderate disease of the mid LAD and of the proximal left circumflex within normal ventral function with estimated ejection fraction of 35%. EKG reviewed by me with sinus rhythm and nonspecific T-wave abnormality no significant change from previous. Negative cardiac enzymes. Continue aspirin, Brilinta and enalapril. Elevated AST on statin. Will hold Zocor for now. Outpatient follow-up Anxiety. Ativan as needed DVT prophylaxis with SCD and subcutaneous heparin Pt Condition on Discharge: Stable Discharge Disposition: Discharge Home Discharge Time: > 30 minutes Discharge Instructions DIET: Follow Instructions for: Heart Healthy Diet Activities you can perform: Regular-No Restrictions Activities to Avoid: Driving Follow up Referrals: PCP Follow-up - 1 Week Pulmonology - 1 Week New Orders: COMP MET PROF (CMP) - 2 Weeks New Medications: Prednisone (Prednisone) 20 Mg Tab 40 MG PO DAILY for Control Inflammation, #10 TAB 0 Refills Take 40 mg (2 tablets) daily for 5 days Azithromycin (Azithromycin) 250 Mg Tab 250 MG PO DAILY for Infection, #2 TAB Continued Medications: Albuterol 8.5 GM Inh (Proair Hfa 8.5 GM Inh) 90 Mcg/Act Aer 2 PUFF INH Q4-6H PRN for SHORTNESS OF BREATH, #1 INHALER 0 Refills 108 mcg/actuation Alendronate (Alendronate) 40 Mg Tab 40 MG PO DAILY PRN for hs, #30 TAB [address] (Aspirin EC) 81 Mg Tabdr 81 MG PO DAILY for CLOT PREVENTION for 30 Days, TAB 11 Refills Enalapril (Enalapril) 5 Mg Tab 5 MG PO BID for HEART PROTECTION for 30 Days, TAB 11 Refills Fluticasone 10.6 GM Inh (Flovent Hfa 10.6 GM Inh) 44 Mcg/Act Inh 2 PUFF INH DAILY for Asthma Management, #1 INHALER 0 Refills Use daily at the same time. Fluticasone-Vilanterol Inh (Breo Ellipta Inh) 100-25 Mcg/Act Inh 1 PUFF INH DAILY, #1 INHALER 0 Refills Use daily at the same time. Mirabegron (Myrbetriq) 50 Mg Tab 50 MG PO DAILY for Urinary Symptom Managemen, #30 TAB 0 Refills Psyllium Powder (Metamucil Original Texture) 48.57 % Pow 1 SCOOP PO TID PRN for CONSTIPATION, CONTAINER 0 Refills 1 rounded TEASPOON in 8 oz of liquid at the first sign of irregularity. Tamsulosin (Tamsulosin) 0.4 Mg Cap 0.4 MG PO HS for Manage Prostate Problems, #30 CAP 0 Refills Ticagrelor (Brilinta) 90 Mg Tab 90 MG PO BID for CLOT PREVENTION for 30 Days, TAB 11 Refills Discontinued Medications: Mirabegron (Myrbetriq) 50 Mg Tab 50 MG PO DAILY for Urinary Symptom Managemen, #30 TAB 0 Refills Simvastatin (Simvastatin) 40 Mg Tab 40 MG PO HS for Cholesterol Management, #30 TAB 0 Refills Additional Information I spent 35 minutes [id number] with the patient or on the kim discussing the patient's disposition, prognosis, and plan of care with patient's caregivers. Over half the time spent was devoted to counseling the patient regarding placement in coordinating care with caregivers and case management. Elieser Haynes MD Nov 13, 2016 12:02
== END 2016-11-13 12:20 | disposition home or self-care (01) ==
LOC: PHED 15:30 → PHEDA 17:26 → PH3A 18:46
PROVIDERS: ADMIT Internal Medicine; ATTEND Internal Medicine
DX: J44.1 Chronic obstructive pulmonary disease with (acute) exacerbation (principal); R74.0 Nonspecific elevation of levels of transaminase and lactic acid dehydrogenase [LDH]; F41.9 Anxiety disorder, unspecified; F32.9 Major depressive disorder, single episode, unspecified; R94.31 Abnormal electrocardiogram [ECG] [EKG]; R11.0 Nausea; I25.10 Atherosclerotic heart disease of native coronary artery without angina pectoris; I11.9 Hypertensive heart disease without heart failure; I51.7 Cardiomegaly; I25.2 Old myocardial infarction; E78.5 Hyperlipidemia, unspecified; E78.00 Pure hypercholesterolemia, unspecified; J45.909 Unspecified asthma, uncomplicated; D71 Functional disorders of polymorphonuclear neutrophils; K21.9 Gastro-esophageal reflux disease without esophagitis; M17.11 Unilateral primary osteoarthritis, right knee; H91.90 Unspecified hearing loss, unspecified ear; F40.240 Claustrophobia; E66.9 Obesity, unspecified; Z95.5 Presence of coronary angioplasty implant and graft; Z79.899 Other long term (current) drug therapy; Z79.82 Long term (current) use of aspirin; Z87.891 Personal history of nicotine dependence
CPT/HCPCS: 71010; 71275; 76937; 80053; 81001; 82550; 83880; 84484; 85025; 85610; 85730; 87804; 93005; 93306; 94150; 94640; 94664; 96372; 96374; 96375; 96376; 99285; G0378; J1644; J2060; J2405; J2930; Q9967

== ENCOUNTER 2016-11-17 11:51 | Emergency (ER) | payer MEDICARE ==
[~2016-11-17] VITALS: Ht 167.6 cm; Wt 110.0 kg
[~2016-11-17 11:51] MED LIST changes: +ALEN40TA PO; +AZIT250T3 PO; -CARV6.252 PO; +FLUT1INH INH; +META48.53 PO; -MULT1TAB84 PO; +PRED20 PO; -PRESCAP5 PO; -SIMV40TA PO
[2016-11-17] MEDS ORDERED: SODIUM CHLORIDE 0.9% FLUSH 10 ML FLUSH IVF PRN (12:00)
[2016-11-17] MEDS ORDERED: LORazepam 2 MG/ML VIAL IV PUSH SCH (12:00)
[2016-11-17 12:11] VITALS: BP 138/82; PULSE 71; RESP 22; TEMP 98; O2SAT 97
[2016-11-17 12:27] LABS: BLOOD GAS CARBOXYHEMOGLOBIN 1.7 % (0-4); BLOOD GAS HCO3 23 mmol/L (22-26); BLOOD GAS O2 HGB SATURATION 93 % (90-100); BLOOD GAS OXYGEN CONTENT 19.3 Vol % (12.0-20.0); BLOOD GAS PCO2 33 mmHG (38-42); BLOOD GAS PO2 74 mmHG (61-120); BLOOD GAS TOTAL HGB 14.8 G/DL (12.0-16.0); CRITICAL VALUE NO; DRAW SITE LT RADIAL; FIO2 21 %; NUMBER OF ARTERIAL PUNCTURES 1; OXYGEN DEVICE ROOM AIR; STAT YES; TEMP CORR TO 98.6; ULNAR PULSE PRESENT
[2016-11-17 12:35] LABS: AUTOMATED NEUTROPHIL # 11.3 TH/MM3 (1.8-7.7); BASOPHIL # 0.3 TH/MM3 (0-0.2); BASOPHIL % 2.4 % (0.0-2.0); EOSINOPHIL # 0.1 TH/MM3 (0-0.4); EOSINOPHIL % 0.4 % (0.0-4.0); HEMATOCRIT 44.3 % (39.0-51.0); LYMPH % 7.4 % (9.0-44.0); MEAN CELL VOLUME 94.1 FL (80.0-100.0); MEAN CORPUSCULAR HEMOGLOBIN 31.2 PG (27.0-34.0); MEAN CORPUSCULAR HGB CONC 33.2 % (32.0-36.0); MONO % 2.5 % (0.0-8.0); NEUT % 87.3 % (16.0-70.0); PLATELET COUNT 222 TH/MM3 (150-450); RED BLOOD COUNT 4.71 MIL/MM3 (4.50-5.90)
[2016-11-17 12:36] LABS: CHLORIDE 104 MEQ/L (98-107); POTASSIUM 4.8 MEQ/L (3.5-5.1); SODIUM (NA) 138 MEQ/L (136-145)
--- NOTE | 2016-11-17 12:36 | RADRPT ---
EXAM DATE/TIME: 11/17/2016 12:24 [facility] COMPARISON: CHEST SINGLE AP, November 11, 2016, 16:22. INDICATIONS : Short of breath. MEDICAL HISTORY : Hypercholesterolemia. Gastroesophageal reflux disease. Chronic obstructive pulmonary disease. My ocardial infarction. Hypertension.Asthma SURGICAL HISTORY : Appendectomy. Renal surgery. ENCOUNTER: Initial ACUITY: 2 days PAIN SCORE: 0/10 LOCATION: chest FINDINGS: A single view of the chest demonstrates the lungs to be symmetrically aerated without evidence of mas s, infiltrate or effusion. The cardiomediastinal contours are unremarkable. Osseous structures are intact. CONCLUSION: No acute disease. Pawel Serrato MD FACR on November 17, 2016 at 12:35 Board Certified Radiologist. This report was verified electronically.
--- NOTE | 2016-11-17 12:36 | PD ---
HPI . Dyspnea Chief Complaint: Respiratory Symptoms Time Seen by Provider: 12:00 Travel History International Travel<30 days: No Contact w/Intl Traveler<30days: No Traveled to known affect area: No History of Present Illness HPI This patient presents complaining with continued dyspnea. The patient states that he was hospitalized here this past through Tuesday for the same thing. He states that his symptoms have persisted and worsened since being discharged. He currently reports moderate dyspnea. He states that his discharge diagnosis was asthma and that he was discharged with inhaled medications, steroids and Zithromax. He states that he has been using these medications with some temporary relief of his symptoms but that the symptoms have persisted. He denies fever. He denies productive cough. He denies chest pain. PFSH Past Medical History Arthritis: Yes (RIGHT KNEE) Asthma: Yes Anxiety: Yes Depression: Yes Cancer: No Cardiovascular Problems: Yes (CAD) High Cholesterol: Yes Chest Pain: No Diabetes: No Diminished Hearing: Yes Endocrine: No Gastrointestinal Disorders: Yes (ESOPHEGEAL REFLUX) GERD: Yes Glaucoma: No Genitourinary: No Hepatitis: No Hiatal Hernia: No Hypertension: Yes Immune Disorder: No Implanted Vascular Access Dvce: No Musculoskeletal: Yes Neurologic: No Psychiatric: Yes Reproductive: No Respiratory: Yes Integumentary: No Thyroid Disease: No Past Surgical History Genitourinary Surgery: Yes (KIDNEYS, APPENDIX) Other Surgery: Yes Social History Alcohol Use: Yes (occ) Tobacco Use: Yes (quit smoking cigars 2 weeks ago) Substance Use: No Allergies-Medications (Allergen,Severity, Reaction): Coded Allergies: No Known Allergies (Unverified , 11/11/16) Reported Meds & Prescriptions Reported Meds & Active Scripts Active Prednisone 20 Mg Tab 40 Mg PO DAILY Take 40 mg (2 tablets) daily for 5 days Azithromycin 250 Mg Tab 250 Mg PO DAILY Aspirin EC (Aspirin) 81 Mg Tabdr 81 Mg PO DAILY 30 Days Brilinta (Ticagrelor) 90 Mg Tab 90 Mg PO BID 30 Days Enalapril (Enalapril Maleate) 5 Mg Tab 5 Mg PO BID 30 Days Reported Carvedilol 6.25 Mg Tab 6.25 Mg PO BID Breo Ellipta Inh (Fluticasone/Vilanterol) 200-25 Mcg/Act Inh 1 Puff INH DAILY Use daily at the same time. Alendronate (Alendronate Sodium) 40 Mg Tab 40 Mg PO DAILY PRN Metamucil Original Texture (Psyllium Hydrophilic Mucilloid) 48.57 % Pow 1 Scoop PO TID PRN 1 rounded TEASPOON in 8 oz of liquid at the first sign of irregularity. Breo Ellipta Inh (Fluticasone/Vilanterol) 100-25 Mcg/Act Inh 1 Puff INH DAILY Use daily at the same time. Proair Hfa 8.5 GM Inh (Albuterol Sulfate) 90 Mcg/Act Aer 2 Puff INH Q4-6H PRN 108 mcg/actuation Flovent Hfa 10.6 GM Inh (Fluticasone Propionate) 44 Mcg/Act Inh 2 Puff INH DAILY Use daily at the same time. Tamsulosin (Tamsulosin HCl) 0.4 Mg Cap 0.4 Mg PO HS Myrbetriq (Mirabegron) 50 Mg Tab 50 Mg PO DAILY Review of Systems Except as stated in HPI: all other systems reviewed are Neg General / Constitutional: No: Fever, Chills Cardiovascular: No: Chest Pain or Discomfort Respiratory: Positive: Shortness of Breath, No: Cough Physical Exam Narrative GENERAL: Obese man who is awake and alert. SKIN: Warm and dry. HEAD: Atraumatic. Normocephalic. EYES: Pupils equal and round. Extraocular movements are intact. ENT: No nasal bleeding or discharge. Mucous membranes pink and moist. NECK: Trachea midline. Neck is supple. CARDIOVASCULAR: Regular rate and rhythm. Heart sounds are normal. RESPIRATORY: No accessory muscle use. He is tachypneic. His lungs have good air movement and are clear. His oxygen saturation on room air is 97%. GASTROINTESTINAL: Abdomen soft, non-tender, nondistended. MUSCULOSKELETAL: No obvious deformities. No edema. NEUROLOGICAL: Awake and alert. No obvious cranial nerve deficits. Motor grossly within normal limits. Normal speech. PSYCHIATRIC: Appropriate mood and affect; insight and judgment normal. Data Data Last Documented VS Vital Signs Date Time Temp Pulse Resp B/P (MAP) Pulse Ox O2 Delivery O2 Flow Rate FiO2 11/17/16 12:11 98.0 71 22 138/82 (100) 97 11/17/16 12:05 Room Air Orders Orders Complete Blood Count With Diff (11/17/16 12:00) Basic Metabolic Panel (Bmp) (11/17/16 12:00) Ckmb (Isoenzyme) Profile (11/17/16 12:00) Troponin I (11/17/16 12:00) Arterial Blood Gas (Abg) (11/17/16 12:00) Iv Access Insert/Monitor (11/17/16 12:00) Electrocardiogram (11/17/16 12:00) Ecg Monitoring (11/17/16 12:00) Oximetry (11/17/16 12:00) Chest, Single Ap (11/17/16 12:00) Sodium Chloride 0.9% Flush (Ns Flush) (11/17/16 12:00) Lorazepam Inj (Ativan Inj) (11/17/16 12:00) Labs Laboratory Tests Test 11/17/16 12:20 11/17/16 12:23 White Blood Count 13.0 TH/MM3 Red Blood Count 4.71 MIL/MM3 Hemoglobin 14.7 GM/DL Hematocrit 44.3 % Mean Corpuscular Volume 94.1 FL Mean Corpuscular Hemoglobin 31.2 PG Mean Corpuscular Hemoglobin Concent 33.2 % Red Cell Distribution Width 13.0 % Platelet Count 222 TH/MM3 Mean Platelet Volume 7.7 FL Neutrophils (%) (Auto) 87.3 % Lymphocytes (%) (Auto) 7.4 % Monocytes (%) (Auto) 2.5 % Eosinophils (%) (Auto) 0.4 % Basophils (%) (Auto) 2.4 % Neutrophils # (Auto) 11.3 TH/MM3 Lymphocytes # (Auto) 1.0 TH/MM3 Monocytes # (Auto) 0.3 TH/MM3 Eosinophils # (Auto) 0.1 TH/MM3 Basophils # (Auto) 0.3 TH/MM3 CBC Comment DIFF FINAL Differential Comment Blood Urea Nitrogen 19 MG/DL Creatinine 1.20 MG/DL Random Glucose 129 MG/DL Calcium Level 8.8 MG/DL Sodium Level 138 MEQ/L Potassium Level 4.8 MEQ/L Chloride Level 104 MEQ/L Carbon Dioxide Level 23.7 MEQ/L Anion Gap 10 MEQ/L Estimat Glomerular Filtration Rate 59 ML/MIN Total Creatine Kinase 66 U/L Troponin I LESS THAN 0.02 NG/ML Blood Gas Puncture Site LT RADIAL Blood Gas Patient Temperature 98.6 Blood Gas HCO3 23 mmol/L Blood Gas Base Excess 0.0 mmol/L Blood Gas Oxygen Saturation 93 % Arterial Blood pH 7.47 Arterial Blood Partial Pressure CO2 33 mmHG Arterial Blood Partial Pressure O2 74 mmHG Arterial Blood Oxygen Content 19.3 Vol % Arterial Blood Carboxyhemoglobin 1.7 % Arterial Blood Methemoglobin 1.0 % Blood Gas Hemoglobin 14.8 G/DL Oxygen Delivery Device ROOM AIR Blood Gas Inspired Oxygen 21 % MDM Medical Decision Making Medical Screen Exam Complete: Yes Emergency Medical Condition: Yes Medical Record Reviewed: Yes (the patient was recently admitted here for similar complaints. He had a CT for PE which was negative. He had an echo which showed an ejection fraction of 55%. He was treated in the hospital with IV steroids, inhaled bronchodilators and antibiotics. He was discharged home on oral steroids, Zithromax and an inhaled bronchodilator.) Interpretation(s) EKG shows a sinus rhythm with no ischemic changes Differential Diagnosis Differential diagnosis of dyspnea includes but is not limited to congestive heart failure, pneumonia, wheezing, pneumothorax, pulmonary embolism Narrative Course This patient presents complaining with dyspnea. His lungs are clear. His sats are 97% on room air. He is hyperventilating. I suspect a component of anxiety. Last Impressions Chest X-Ray 11/17/16 1200 Signed Impressions: Service Date/Time: Thursday, November 17, 2016 12:24 - CONCLUSION: No acute disease. Pawel Serrato MD FACR The chest x-ray was independently viewed by me. CBC & BMP Diagram 11/17/16 12:20 Calcium Level 8.8 Cardiac enzymes are negative. ABG Test 11/17/16 12:23 Arterial Blood Carboxyhemoglobin 1.7 % Arterial Blood Methemoglobin 1.0 % Arterial Blood Oxygen Content 19.3 Vol % Arterial Blood Partial Pressure CO2 33 mmHG L Arterial Blood Partial Pressure O2 74 mmHG Arterial Blood pH 7.47 H Blood Gas Base Excess 0.0 mmol/L Blood Gas HCO3 23 mmol/L Blood Gas Hemoglobin 14.8 G/DL Blood Gas Inspired Oxygen 21 % Blood Gas Oxygen Saturation 93 % Oxygen Delivery Device ROOM AIR The patient feels better following Ativan. I have discussed with the patient and his the possibility of a component of anxiety. He agrees. He is comfortable going home. Diagnosis Primary Impression: Dyspnea Qualified Codes: R06.00 - Dyspnea, unspecified Disposition: 01 DISCHARGE HOME Condition: Stable Lindsey Robbins MD Nov 17, 2016 12:36
[2016-11-17 12:38] LABS: HEMO FLAGS DIFF FINAL
[2016-11-17 12:39] LABS: ANION GAP 10 MEQ/L (5-15); BICARBONATE 23.7 MEQ/L (21.0-32.0); BLOOD UREA NITROGEN 19 MG/DL (7-18)
[2016-11-17 12:42] LABS: GLOMERULAR FILTRATION RATE 59 ML/MIN (>89)
[2016-11-17] MEDS ORDERED: FLUT1INH7 INH (12:51)
[2016-11-17 12:54] LABS: CREATINE KINASE 66 U/L (39-308)
[2016-11-17] MEDS ORDERED: CARV6.252 PO (12:58)
[2016-11-17 13:05] VITALS: BP 109/65; PULSE 68; RESP 18; O2SAT 95
[2016-11-17] MEDS ORDERED: TRAZ50TA12 PO (13:10)
[2016-11-17] MEDS ORDERED: UMEC1INH INH (13:10)
[2016-11-17] MEDS ORDERED: LINA145C PO (13:10)
[2016-11-17 13:52] VITALS: BP 133/66
--- NOTE | 2016-11-19 12:25 | EKG ---
Date Performed: 11/17/2016 Time Performed: 12:20:09 PTAGE: 75 years EKG: Sinus rhythm Nondiagnostic changes in the inferior leads BORDERLINE ECG PREVIOUS TRACING : 11/12/2016 05.25 No change from the prior tracing. DOCTOR: Jose Alfredo Cheung Interpretating Date/Time 11/19/2016 12:23:53
== END 2016-11-17 13:51 | disposition home or self-care (01) ==
LOC: PHED 11:51
DX: R06.00 Dyspnea, unspecified (principal); H91.90 Unspecified hearing loss, unspecified ear; I10 Essential (primary) hypertension; I25.10 Atherosclerotic heart disease of native coronary artery without angina pectoris; I25.2 Old myocardial infarction; J44.9 Chronic obstructive pulmonary disease, unspecified
CPT/HCPCS: 36600; 71010; 80048; 82550; 82805; 84484; 85025; 93005; 96374; 99285; J2060

== ENCOUNTER 2016-12-19 10:40 | Emergency (ER) | payer MEDICARE ==
[~2016-12-19] VITALS: Ht 167.6 cm; Wt 111.3 kg
[~2016-12-19 10:40] MED LIST changes: +CARV6.252 PO; -FLUT1INH INH; +FLUT1INH7 INH; +LINA145C PO; +TRAZ50TA12 PO; +UMEC1INH INH
[2016-12-19 11:10] VITALS: BP 137/68; PULSE 71; RESP 18; TEMP 98; O2SAT 97
[2016-12-19] MEDS ORDERED: LORazepam 1 MG TAB PO ONE (11:30)
[2016-12-19 11:31] VITALS: O2SAT 99
--- NOTE | 2016-12-19 11:31 | PD ---
HPI Chief Complaint: shortness of breath Time Seen by Provider: 11:17 Travel History International Travel<30 days: No Contact w/Intl Traveler<30days: No Traveled to known affect area: No History of Present Illness HPI This patient complains of shortness of breath. Symptoms severity is moderate. He is chronically short of breath every single day. He does not wear oxygen. He does have nebulizer and inhalers at home. He quit smoking 3 Months ago. He has a chronic dry cough which is unchanged today. No fever or chest pain. Symptoms have no alleviating factors. Symptoms are exacerbated by his anxiety. He is anxiety medication but didn't take any today. He does feel anxious and stressed. Duration is every day for years. PFSH Past Medical History Arthritis: Yes (RIGHT KNEE) Asthma: Yes Anxiety: Yes Depression: Yes Cancer: No Cardiac Catheterization: Yes Cardiovascular Problems: Yes (CAD) High Cholesterol: Yes Chest Pain: Yes COPD: Yes Diabetes: No Diminished Hearing: Yes Endocrine: No Gastrointestinal Disorders: Yes (ESOPHEGEAL REFLUX) GERD: Yes Glaucoma: No Genitourinary: Yes (overactive bladder) Hepatitis: No Hiatal Hernia: No Hypertension: Yes Immune Disorder: No Implanted Vascular Access Dvce: No Musculoskeletal: Yes Neurologic: No Psychiatric: Yes Reproductive: No Respiratory: Yes Integumentary: No Thyroid Disease: No Past Surgical History Appendectomy: Yes Coronary Stent: Yes Genitourinary Surgery: Yes (KIDNEYS, APPENDIX) Other Surgery: Yes Social History Alcohol Use: Yes (occ) Tobacco Use: No (quit smoking cigars 2 weeks ago) Substance Use: No Allergies-Medications (Allergen,Severity, Reaction): Coded Allergies: No Known Allergies (Unverified , 12/19/16) Reported Meds & Prescriptions Reported Meds & Active Scripts Active Aspirin EC (Aspirin) 81 Mg Tabdr 81 Mg PO DAILY 30 Days Brilinta (Ticagrelor) 90 Mg Tab 90 Mg PO BID 30 Days Enalapril (Enalapril Maleate) 5 Mg Tab 5 Mg PO BID 30 Days Reported Incruse Ellipta Inh (Umeclidinium [place] Inh) 0.0625 Mg/Act Inh 62.5 Mcg INH DAILY Linzess (Linaclotide) 145 Mcg Cap 145 Mcg PO DAILY Trazodone (Trazodone HCl) 50 Mg Tab 50 Mg PO HS Carvedilol 6.25 Mg Tab 6.25 Mg PO BID Breo Ellipta Inh (Fluticasone/Vilanterol) 200-25 Mcg/Act Inh 1 Puff INH DAILY Use daily at the same time. Alendronate (Alendronate Sodium) 40 Mg Tab 40 Mg PO DAILY PRN Metamucil Original Texture (Psyllium Hydrophilic Mucilloid) 48.57 % Pow 1 Scoop PO TID PRN 1 rounded [place] in 8 oz of liquid at the first sign of irregularity. Proair Hfa 8.5 GM Inh (Albuterol Sulfate) 90 Mcg/Act Aer 2 Puff INH Q4-6H PRN 108 mcg/actuation Flovent Hfa 10.6 GM Inh (Fluticasone Propionate) 44 Mcg/Act Inh 2 Puff INH DAILY Use daily at the same time. Tamsulosin (Tamsulosin HCl) 0.4 Mg Cap 0.4 Mg PO HS Myrbetriq (Mirabegron) 50 Mg Tab 50 Mg PO DAILY Review of Systems General / Constitutional: No: Fever Eyes: No: Visual changes HENT: No: Headaches Cardiovascular: No: Chest Pain or Discomfort Respiratory: Positive: Cough, Shortness of Breath Gastrointestinal: No: Abdominal Pain Genitourinary: No: Dysuria Musculoskeletal: No: Pain Skin: No Rash Neurologic: No: Weakness Psychiatric: Positive: Anxiety, No: Depression Endocrine: No: Polydipsia Hematologic/Lymphatic: No: Easy Bruising Physical Exam Narrative GENERAL: Well-nourished, well-developed patient with anxiety and dyspnea. SKIN: Focused skin assessment reveals no rash and nodules. Skin is Warm and dry. HEAD: Atraumatic. Normocephalic. EYES: Pupils equal and round. No scleral icterus. No injection or drainage. ENT: No nasal bleeding or discharge. Mucous membranes pink and moist. NECK: Trachea midline. No JVD. CARDIOVASCULAR: Regular rate and rhythm. No murmur appreciated. RESPIRATORY: No accessory muscle use. Clear to auscultation. Breath sounds equal bilaterally. GASTROINTESTINAL: Abdomen soft, obese, non-tender, nondistended. Hepatic and splenic margins not palpable. MUSCULOSKELETAL: No obvious deformities. No clubbing. No cyanosis. No edema. NEUROLOGICAL: Awake and alert. No obvious cranial nerve deficits. Motor grossly within normal limits. Normal speech. PSYCHIATRIC: Anxious mood and affect; insight and judgment normal. Data Data Last Documented VS Vital Signs Date Time Temp Pulse Resp B/P (MAP) Pulse Ox O2 Delivery O2 Flow Rate FiO2 12/19/16 11:31 99 Room Air 12/19/16 11:10 98.0 71 18 137/68 (91) Orders Orders Chest, Single Ap (12/19/16 ) Electrocardiogram (12/19/16 ) Orthodontic Laboratory Technician / Telemetry ARINA.Q8H (12/19/16 11:25) Lorazepam (Ativan) (12/19/16 11:30) Oximetry (12/19/16 11:25) MDM Medical Decision Making Medical Screen Exam Complete: Yes Emergency Medical Condition: Yes Medical Record Reviewed: Yes Differential Diagnosis Differential diagnosis includes COPD, asthma, pneumonia, bronchitis, anxiety Narrative Course I have reviewed the patient's electronic medical record. Reviewed his most recent visit. ER physician felt that his symptoms were largely anxiety driven. He had recent negative CTA for PE I reviewed his chest x-ray and compared it to the one done recently. They look the same. Radiologist reading is noted. However, he does not have any objective findings or clinical suspicion of CHF. He has clear lungs and good saturations and his breathing coughed really. He has no peripheral edema. Denies any history of CHF. Has not had any chest pain. I reviewed his EKG which does not show any ST elevation Saturations are excellent and his lungs are clear I gave him a dose of Ativan On reassessment the patient is breathing fine. Stable for outpatient follow-up. Diagnosis Primary Impression: Shortness of breath Additional Impression: Anxiety Additional Instructions: The patient was advised to follow up with their physician and return if they worsen. Med/Other Pt SpecificInfo: Other Disposition: 01 DISCHARGE HOME Condition: Stable Cordell Wang MD Dec 19, 2016 11:31
--- NOTE | 2016-12-19 12:13 | RADRPT ---
EXAM DATE/TIME: 12/19/2016 11:51 [facility] COMPARISON: CHEST SINGLE AP, November 17, 2016, 12:24. INDICATIONS : Short of breath MEDICAL HISTORY : Chronic obstructive pulmonary disease. Emphysema. SURGICAL HISTORY : Spinal, lumbar ENCOUNTER: Initial ACUITY: 1 day PAIN SCORE: 0/10 LOCATION: Bilateral chest FINDINGS: A single portable view of the chest demonstrates moderate cardiomegaly and cephalization of pulmonary vasculature. The lungs are hypoinflated but clear. Osseous structures are unremarkable. CONCLUSION: Hypoinflation of the lungs. Radiographic features consistent with congestive heart failure. Bren Fitch MD on December 19, 2016 at 12:11 Board Certified Radiologist. This report was verified electronically.
[2016-12-19 14:28] VITALS: PULSE 86; RESP 18; O2SAT 98
--- NOTE | 2016-12-20 19:43 | EKG ---
Date Performed: 12/19/2016 Time Performed: 11:35:07 PTAGE: 76 years EKG: Sinus rhythm NONSPECIFIC T-WAVE ABNORMALITY BORDERLINE ECG PREVIOUS TRACING : 11/17/2016 12.20 Compared to prior tracing no significant change DOCTOR: Wyatt Cordero Interpretating Date/Time 12/20/2016 19:38:45
== END 2016-12-19 14:30 | disposition home or self-care (01) ==
LOC: PHED 10:40
DX: R06.02 Shortness of breath (principal); F41.9 Anxiety disorder, unspecified; E78.00 Pure hypercholesterolemia, unspecified; H91.90 Unspecified hearing loss, unspecified ear; I10 Essential (primary) hypertension; I25.10 Atherosclerotic heart disease of native coronary artery without angina pectoris; J44.9 Chronic obstructive pulmonary disease, unspecified; K21.9 Gastro-esophageal reflux disease without esophagitis; N32.81 Overactive bladder; Z87.891 Personal history of nicotine dependence; Z95.5 Presence of coronary angioplasty implant and graft
CPT/HCPCS: 71010; 93005

== ENCOUNTER 2018-01-01 22:31 | Observation (INO) ==
--- NOTE | 2018-01-01 22:56 | XR ---
EXAM DATE: 01/01/2018 10:36 PM EDT AGE/SEX: 77 years / Male INDICATIONS: Chest pain. CLINICAL DATA: This is the patient's initial encounter. Patient reports that signs and symptoms have been present for 1 day and indicates a pain score of 5/10. MEDICAL/SURGICAL HISTORY: Chronic obstructive pulmonary disease. Emphysema. None. COMPARISON: POI, XR CHEST PA AND LAT, 05/25/2017. . FINDINGS: The heart is enlarged. Mild interstitial edema is present. There is no evidence consolidation, pleura l effusion or pneumothorax. The portion of the bony skeleton visualized is unremarkable. CONCLUSION: Moderate congestive failure. Electronically signed by: Pawel Serrato MD 01/01/2018 10:55 PM EDT
--- NOTE | 2018-01-01 23:10 | ED ---
HPI General Chief Complaint: Chest Pain Stated Complaint: chest pain Source: patient and family Mode of arrival: ambulatory Limitations: no limitations History of Present Illness HPI narrative: 77-year-old male presents to the emergency department for complaint of retrosternal chest pain associated with mild shortness of breath nausea and brief sweats with history of CAD and previous myocardial infarction presents to the emergency department after 1-1/2 hours of symptoms. Patient is taken no medications prior to arrival to the emergency department. Patient states at home pain was 8/10 in intensity and is 5/10 in intensity. Patient also complains of some abdominal pain which she has noticed and thought he had indigestion. Symptoms escalated after drinking a shantel. 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 complaint: Reports chest pain STEMI Alert: No Onset (ago): hour(s) Duration: constant and improved Onset: after eating Pain location: Reports substernal Severity: moderate Quality: Reports aching, heaviness and dull Pain radiation: Reports none Relieving factors: nothing Exacerbating factors: eating Context: Denies recent illness, recent surgery, recent immobilization, recent travel, trauma/injury, new medications and history of DVT/PE Associated symptoms: Reports nausea, diaphoresis and dyspnea; Denies vomiting, sense of impending doom, syncope, palpitations, fever, cough and leg swelling Treatments prior to arrival chest pain: Reports none Related Data Home Medications Medication Instructions Recorded Confirmed albuterol sulfate 2.5 mg INHALATION Q4-6H PRN 01/01/18 01/01/18 albuterol sulfate [Ventolin HFA] 2 puff INHALATION Q4-6H PRN 01/01/18 01/01/18 aspirin 81 mg PO DAILY 01/01/18 01/01/18 atorvastatin 40 mg PO DAILY 01/01/18 01/01/18 carvedilol 6.25 mg PO BID 01/01/18 01/01/18 enalapril maleate 5 mg PO DAILY 01/01/18 01/01/18 fluticasone-vilanterol [Breo 1 inh INHALATION DAILY 01/01/18 01/01/18 Ellipta] linaclotide [Linzess] 145 mcg PO DAILY 01/01/18 01/01/18 mirabegron [Myrbetriq] 50 mg PO DAILY 01/01/18 01/01/18 tamsulosin 0.4 mg PO DAILY 01/01/18 01/01/18 trazodone 50 mg PO DAILY 01/01/18 01/01/18 Allergies Allergy/AdvReac Type Severity Reaction Status Date / Time No Known Allergies Allergy Uncoded 12/19/16 11:36 Review of Systems ROS: all other systems reviewed are negative [facility] Medical History Medical History Abdominal hernia (Acute) Anxiety (Acute) Asthma (Acute) Fracture (Acute) HTN (hypertension) (Acute) Heart attack (Acute) High cholesterol (Acute) Surgical History Surgical History History of back surgery (Acute) History of heart artery stent (Acute) Social History Social History Substance History: No History of Abuse Second Hand Smoke Exposure: No Smoking Status: Former smoker Tobacco Type: Cigarettes How Often Do You Have a Drink Containing Alcohol: Monthly or less Recent Travel in [facility] within the Last 8 Weeks: No Exam Narrative Exam Narrative: GENERAL: Well-nourished, well-developed patient. SKIN: Focused skin assessment warm/dry. HEAD: Normocephalic. EYES: No scleral icterus. No injection or drainage. NECK: Supple, trachea midline. No JVD or lymphadenopathy. CARDIOVASCULAR: Regular rate and rhythm without murmurs, gallops, or rubs. RESPIRATORY: Breath sounds equal bilaterally. No accessory muscle use. GASTROINTESTINAL: Abdomen soft, non-tender, nondistended. MUSCULOSKELETAL: No cyanosis, or edema. Radial and dorsalis pedis pulses 2+ to palpation bilaterally BACK: Nontender without obvious deformity. No CVA tenderness. Course Initial Documented Vital Signs Pulse Oximetry 96 01/01/18 22:35 Last Documented Vital Signs Temperature 97.6 F 01/01/18 22:40 Pulse Rate 60 01/02/18 03:44 Respiratory Rate 18 01/02/18 03:44 Blood Pressure 104/43 L 01/02/18 03:44 Pulse Oximetry 98 01/02/18 03:44 Medical Decision Making MDM Narrative Medical decision making narrative: 77-year-old male with history of CAD and previous HI with cardiac stent presents to the emergency department for an hour and a half of retrosternal chest pain with brief nausea shortness of breath and mild diaphoresis that has resolved pain was 8/10 in intensity presently 5/10 in intensity. Patient is taken no medications prior to arrival to the emergency department for symptom relief. Patient ordered to receive aspirin 162 mg by mouth chewed as well as sublingual nitroglycerin 0.4 mg every 5 minutes as needed for chest pain. Specimens collected and sent for resulting. EKG performed which reveals no acute ST elevation evidence of previous Q waves inferiorly. At 1130 after first sublingual nitroglycerin medication had hypotensive episode with systolic pressure of 77 patient placed in Trendelenburg position and given bolus of normal saline 300 cc. Repeat blood pressure 113 systolic patient is chest pain-free discomfort 0/10 in intensity no report of shortness of breath nausea diaphoresis or pain. Troponin I is less than 0.02 and BNP is not elevated at 45. Chest x-ray per reading radiologist shows cardiomegaly with moderate pulmonary congestion however O2 saturations are good patient's in no respiratory distress no tachypnea no complaint of shortness of breath BNP is not elevated no pitting edema eXTREMITY: [*] hand Nontender. Full range of motion in all joints. No joint swelling/injury. Lumbrical and interossei function intact. Normal opposition of thumb. Distal extremity neurovascularly intact with intact two point discrimination. Lung sounds remain clear to auscultation. At this point time patient appears to be a candidate for chest pain center for serial cardiac enzymes however does appear to be sensitive to nitroglycerin therefore discussed with medicine service regarding observation status versus chest pain center. Patient will be admitted to observation, [facility] per protocol per Dr Del Cid. Medical Screen Exam Complete: Yes Emergency Medical Condition: Yes Differential Diagnosis Differential Diagnosis: Chest pain, ACS, HI, aortic dissection, aneurysm, esophageal spasm, cholecystitis, pancreatitis, peptic ulcer disease, gastroenteritis Medical Records Medical records reviewed: Yes I reviewed the patient's medical records. Lab Data Lab results reviewed: Yes I reviewed the patient's lab results. Result diagrams: 01/01/18 23:00 01/01/18 23:00 Lab Results 01/01/18 01/01/18 01/01/18 Range/Units 23:00 23:00 23:00 CBC w Diff Auto diff final WBC 7.0 (4.0-11.0) th/mm3 RBC 4.32 L (4.50-5.90) mil/mm3 Hgb 14.3 (13.0-17.0) gm/dL Hct 41.0 (39.0-51.0) % MCV 94.8 (80.0-100.0) fL MCH 33.2 (27.0-34.0) pg MCHC 35.0 (32.0-36.0) % RDW 12.9 (11.6-17.2) % Plt Count 179 (150-450) th/mm3 MPV 8.2 (7.0-11.0) fL Neut % (Auto) 64.4 (16.0-70.0) % Lymph % (Auto) 23.8 (9.0-44.0) % [place] % (Auto) 7.3 (0.0-8.0) % Eos % (Auto) 4.1 H (0.0-4.0) % Baso % (Auto) 0.4 (0.0-2.0) % Neut # (Auto) 4.5 (1.8-7.7) th/mm3 Lymph # (Auto) 1.7 (1.0-4.8) th/mm3 [place] # (Auto) 0.5 (0.0-0.9) th/mm3 Eos # (Auto) 0.3 (0.0-0.4) th/mm3 Baso # (Auto) 0.0 (0.0-0.2) th/mm3 WBC Differential . Differential Comment . Sodium 140 (136-145) meq/L Potassium 3.9 (3.5-5.1) meq/L Chloride 108 H (98-107) meq/L Carbon Dioxide 23.8 (21.0-32.0) meq/L Anion Gap 8 (5-15) meq/L BUN 18 (7-18) mg/dL Creatinine 1.20 (0.60-1.30) mg/dL Estimated GFR 59 L (>89) mL/min Random Glucose 88 (74-106) mg/dL Calcium 8.7 (8.5-10.1) mg/dL Total Bilirubin 0.3 (0.2-1.0) mg/dL AST 18 (15-37) U/L ALT 32 (12-78) U/L Alkaline Phosphatase 95 (45-117) U/L Troponin I Less than 0.02 L (0.02-0.05) ng/mL B-Natriuretic Peptide 34 (0-100) pg/mL Total Protein 7.3 (6.4-8.2) g/dL Albumin 3.4 (3.4-5.0) g/dL Imaging Data Radiologist's impression: Chest X-Ray 01/01/18 22:36 CONCLUSION: Moderate congestive failure. ECG Data EKG Prior to Arrival: No Prior ECG tracings: not available for review Interpretation: EKG: Normal sinus rhythm rate with Q waves noted inferiorly consistent with prior inferior HI Discharge Plan Discharge Disposition Patient Disposition: 30 Still Patient Discharge Condition Condition: Stable Discharge Details Diagnosis: Chest pain Physicians Team ED Provider: Sandra Pringle Primary Care Provider: Isak Escudero Attending Provider: Gretel Del Cid ED Status: Admitted Observation Patient
[2018-01-01] MEDS: Sod Chloride 0.9% Inj 1,000 ML IV.CONT SCH (23:23)
[2018-01-01 23:29] LABS: Baso % (Auto) 0.4 % (0.0-2.0); Eos # (Auto) 0.3 th/mm3 (0.0-0.4); Eos % (Auto) 4.1 % (0.0-4.0); Hemoglobin 14.3 gm/dL (13.0-17.0); Lymph # (Auto) 1.7 th/mm3 (1.0-4.8); Lymph % (Auto) 23.8 % (9.0-44.0); Mean Corpuscular Hemoglobin 33.2 pg (27.0-34.0); Mean Corpuscular Volume 94.8 fL (80.0-100.0); Mean Platelet Volume 8.2 fL (7.0-11.0); Mono # (Auto) 0.5 th/mm3 (0.0-0.9); Mono % (Auto) 7.3 % (0.0-8.0); Neut # (Auto) 4.5 th/mm3 (1.8-7.7); Neut % (Auto) 64.4 % (16.0-70.0); Platelet Count 179 th/mm3 (150-450); Red Blood Count 4.32 mil/mm3 (4.50-5.90); Red Cell Distribution Width 12.9 % (11.6-17.2)
[2018-01-01 23:36] LABS: Chloride 108 meq/L (98-107); Potassium 3.9 meq/L (3.5-5.1); Sodium 140 meq/L (136-145)
[2018-01-01 23:39] LABS: Calcium 8.7 mg/dL (8.5-10.1)
[2018-01-01 23:40] LABS: Albumin 3.4 g/dL (3.4-5.0); Anion Gap 8 meq/L (5-15); Blood Urea Nitrogen 18 mg/dL (7-18); Carbon Dioxide 23.8 meq/L (21.0-32.0); Glucose,Random 88 mg/dL (74-106)
[2018-01-01 23:43] LABS: Alanine Aminotransferase 32 U/L (12-78); Aspartate Aminotransferase 18 U/L (15-37); Glomerular Filtration Rate 59 mL/min (>89)
[2018-01-01 23:45] LABS: Total Protein 7.3 g/dL (6.4-8.2)
[2018-01-01 23:46] LABS: Alkaline Phosphatase 95 U/L (45-117)
[2018-01-02 04:35] LABS: Creatine Kinase 79 U/L (39-308)
[2018-01-02 08:31] VITALS: RESP 18
--- NOTE | 2018-01-02 08:33 | P.HP ---
History of Present Illness Primary Care Physician: Isak Escudero MD Chief Complaint: Chest pain History of Present Illness: 77-year-old male with known history of coronary artery disease, history of myocardial infarction, hypertension, hyperlipidemia who presented to hospital for acute onset of chest pain. Patient states that he is followed by Dr. Askew on a regular basis. He did miss his appointment for follow-up recently. However he just got notified in the mail that he needed to call in schedule appointment for a stress test. Patient indicates that he is in normal state of health until last night while he was watching TV and got a sudden onset of chest pain located in the left side of his chest without any radiation to the neck, back, shoulder, arm. Patient denied any nausea, vomiting, diaphoresis, shortness of breath, dyspnea. Patient indicates that he has been experiencing chest discomfort intermittently for the last couple months. The last time he had an episode was approximately 1-1/2 weeks ago. Patient indicates that the pain usually lasts for a couple seconds at a time, however last night the pain lasted for approximately 1-1/2 hours. He came to the emergency department and it was quite intense pain patient was given aspirin nitroglycerin with improvement of his pain. Presently the patient does have a 2 /10 on a pain scale discomfort. Patient was recommended observation for further evaluation and management. - Diagnosis (1) Chest pain Review of Systems All other systems reviewed negative except as stated in HPI Cardiovascular: Reports chest pain PMF - History History Provided By: Patient, Family Member - Medical History Medical History: Medical History (Last Updated 01/02/18 @ 08:19 by CHARLEE Weinberg) Abdominal hernia Anxiety Asthma Fracture HTN (hypertension) Heart attack High cholesterol Macular degeneration - Surgical History Surgical History: Surgical History (Last Updated 01/02/18 @ 08:19 by CHARLEE Weinberg) History of appendectomy History of back surgery History of cataract surgery History of heart artery stent - Family History Family History: Family History (Last Updated 01/02/18 @ 08:19 by CHARLEE Weinberg) Mother History of acute myocardial infarction - Tobacco History Second Hand Smoke Exposure: No Tobacco Use In Past 30 Days: No Smoking Status: Former smoker Tobacco Type: Cigarettes - Alcohol History How Often Do You Have a Drink Containing Alcohol: Monthly or less - Substance Use History Substance History: No History of Abuse - Travel History Recent Travel in the [facility] Within the Last 8 Weeks: No - Immunization History Tetanus Immunization: >5 Years Medications and Allergies Active Medications: Active Medications Aspirin (Aspirin) 325 mg PO DAILY EARNEST Sodium Chloride (Ns Inj) 1,000 mls @ 84 mls/hr IV.CONT .[id number] EARNEST Last Infusion: 01/02/18 07:10 Dose: 84 mls/hr Nitroglycerin (Nitrostat Sl) 0.4 mg SL Q5M PRN PRN Reason: CHEST PAIN Last Admin: 01/01/18 23:24 Dose: 0.4 mg Sodium Chloride (Ns Flush) 2 ml IV.FLUSH BID EARNEST Sodium Chloride (Ns Flush) 2 ml IV.FLUSH PRN PRN PRN Reason: FLUSH AFTER USING IV ACCESS Allergies Allergy/AdvReac Type Severity Reaction Status Date / Time No Known Allergies Allergy Verified 01/02/18 04:17 Home Medications Medication Instructions Recorded Confirmed Type albuterol sulfate 2.5 mg INHALATION Q4-6H PRN 01/01/18 01/01/18 History albuterol sulfate [Ventolin HFA] 2 puff INHALATION Q4-6H PRN 01/01/18 01/01/18 History aspirin 81 mg PO DAILY 01/01/18 01/01/18 History atorvastatin 40 mg PO DAILY 01/01/18 01/01/18 History carvedilol 6.25 mg PO BID 01/01/18 01/01/18 History enalapril maleate 5 mg PO DAILY 01/01/18 01/01/18 History fluticasone-vilanterol [Breo 1 inh INHALATION DAILY 01/01/18 01/01/18 History Ellipta] linaclotide [Linzess] 145 mcg PO DAILY 01/01/18 01/01/18 History mirabegron [Myrbetriq] 50 mg PO DAILY 01/01/18 01/01/18 History tamsulosin 0.4 mg PO DAILY 01/01/18 01/01/18 History trazodone 50 mg PO DAILY 01/01/18 01/01/18 History Exam Vital signs: Vital Signs 01/01/18 22:35 01/01/18 22:40 01/01/18 23:31 Temperature 97.6 F Pulse Rate 81 79 Respiratory Rate 24 20 Blood Pressure 185/70 H Pulse Oximetry 96 96 94 L 01/01/18 23:34 01/01/18 23:40 01/02/18 00:00 Temperature Pulse Rate 78 89 Respiratory Rate 20 20 Blood Pressure 80/46 L 86/53 L 113/59 L Pulse Oximetry 95 01/02/18 00:11 01/02/18 01:45 01/02/18 03:44 Temperature Pulse Rate 61 60 Respiratory Rate 20 18 Blood Pressure 114/56 L 104/43 L Pulse Oximetry 97 97 98 01/02/18 04:38 01/02/18 05:28 01/02/18 06:02 Temperature Pulse Rate 64 64 63 Respiratory Rate 18 18 Blood Pressure 131/60 119/65 Pulse Oximetry 98 98 01/02/18 06:49 Temperature 98 F Pulse Rate 66 Respiratory Rate 16 Blood Pressure 142/77 H Pulse Oximetry 97 Intake & Output 01/01/18 01/02/18 01/02/18 18:59 06:59 18:59 Intake Total 800 / 800 Output Total 575 / 575 Balance 225 / 225 Weight 114.4 kg Intake: IV 800 / 800 NS Inj 1,000 ML @ 84 mls/hr IV. 800 / 800 CONT .[id number] [facility] Rx#: [id number] Output: Urine 575 / 575 Narrative: GENERAL: Well-developed, well-nourished, in no acute distress. alert and orientated HEENT: Head is normocephalic without any lesions or masses noted. Facial features are symmetric. Eyes: Pupils equal round reactive to light. Extraocular muscles are intact. Conjunctivae were clear. Oropharyngeal: Pharynx without any erythema edema. Tongue is midline without deviation. Buccal mucosa is moist without any masses or lesions NECK: Supple without any masses. Trachea midline no deviation. No JVD, no bruits are appreciated CARDIAC: Regular rhythm, regular rate. S1/S2 are heard. No murmurs gallops or rubs. LUNGS: Clear to auscultation bilaterally. No wheeze, rhonchi or rales. No use of accessory muscles on inspiration or expiration. ABDOMEN: Soft, nontender. Nondistended. Bowel sounds heard in all 4 quadrants. No organomegaly or masses. Negative rebound, negative guarding EXTREMITIES: No edema, pulses are equal bilaterally. No cyanosis or clubbing NEUROLOGY: Mood and affect appear appropriate. Cranial nerves II through XII grossly intact. Muscle strength 5/5 in upper and lower extremities bilaterally. Deep tendon reflexes are 2+ in upper and lower extremities bilaterally. Results - Labs CBC & Chem 7: 01/01/18 23:00 01/01/18 23:00 Labs: Laboratory Results - last 24 hr 01/01/18 01/01/18 01/01/18 23:00 23:00 23:00 CBC w Diff Auto diff final WBC 7.0 RBC 4.32 L Hgb 14.3 Hct 41.0 MCV 94.8 MCH 33.2 MCHC 35.0 RDW 12.9 Plt Count 179 MPV 8.2 Neut % (Auto) 64.4 Lymph % (Auto) 23.8 Callaway % (Auto) 7.3 Eos % (Auto) 4.1 H Baso % (Auto) 0.4 Neut # (Auto) 4.5 Lymph # (Auto) 1.7 [place]away # (Auto) 0.5 Eos # (Auto) 0.3 Baso # (Auto) 0.0 WBC Differential . Differential Comment . Sodium 140 Potassium 3.9 Chloride 108 H Carbon Dioxide 23.8 Anion Gap 8 BUN 18 Creatinine 1.20 Estimated GFR 59 L Random Glucose 88 Calcium 8.7 Total Bilirubin 0.3 AST 18 ALT 32 Alkaline Phosphatase 95 Total Creatine Kinase Troponin I Less than 0.02 L B-Natriuretic Peptide 34 Total Protein 7.3 Albumin 3.4 01/02/18 03:40 CBC w Diff WBC RBC Hgb Hct MCV MCH MCHC RDW Plt Count MPV Neut % (Auto) Lymph % (Auto) Callaway % (Auto) Eos % (Auto) Baso % (Auto) Neut # (Auto) Lymph # (Auto) [place] # (Auto) Eos # (Auto) Baso # (Auto) WBC Differential Differential Comment Sodium Potassium Chloride Carbon Dioxide Anion Gap BUN Creatinine Estimated GFR Random Glucose Calcium Total Bilirubin AST ALT Alkaline Phosphatase Total Creatine Kinase 79 Troponin I Less than 0.02 L B-Natriuretic Peptide Total Protein Albumin - Imaging Impressions Chest X-Ray 01/01/18 22:36 CONCLUSION: Moderate congestive failure. Caprini VTE Risk Assessment Caprini VTE Risk Assessment: Moderate/High Risk (score >= 2) Caprini Risk Assessment Model: Point Value = 1 Point Value = 2 Point Value = 3 Point Value = 5 Age 41-60 Minor surgery BMI > 25 kg/m2 Swollen legs Varicose veins or History of unexplained or recurrent spontaneous Oral contraceptives or hormone replacement Sepsis (< 1 month) Serious lung disease, including pneumonia (< 1 month) Abnormal pulmonary function Acute myocardial infarction Congestive heart failure (< 1 month) History of inflammatory bowel disease Medical patient at bed rest Age 61-74 Arthroscopic surgery Major open surgery (> 45 min) Laparoscopic surgery (> 45 min) Malignancy Confined to bed (> 72 hours) Immobilizing plaster cast Central venous access Age >= 75 History of VTE Family history of VTE Factor V Leiden Prothrombin [id number] Lupus anticoagulant Anticardiolipin antibodies Elevated serum homocysteine Heparin-induced thrombocytopenia Other congenital or acquired thrombophilia Stroke (< 1 month) Elective arthroplasty Hip, pelvis, or leg fracture Acute spinal cord injury (< 1 month) Prophylaxis Regimen: Total Risk Factor Score Risk Level Prophylaxis Regimen 0-1 Low Early ambulation 2 Moderate Order ONE of the following: *Sequential Compression Device (SCD) *Heparin 5000 units SQ BID 3-4 Higher Order ONE of the following medications: *Heparin 5000 units SQ TID *Enoxaparin/Lovenox 40 mg SQ daily (WT < 150 kg, CrCl > 30 mL/min) *Enoxaparin/Lovenox 30 mg SQ daily (WT < 150 kg, CrCl > 10-29 mL/min) *Enoxaparin/Lovenox 30 mg SQ BID (WT < 150 kg, CrCl > 30 mL/min) AND/OR *Sequential Compression Device (SCD) 5 or more Highest Order ONE of the following medications: *Heparin 5000 units SQ TID (Preferred with Epidurals) *Enoxaparin/Lovenox 40 mg SQ daily (WT < 150 kg, CrCl > 30 mL/min) *Enoxaparin/Lovenox 30 mg SQ daily (WT < 150 kg, CrCl > 10-29 mL/min) *Enoxaparin/Lovenox 30 mg SQ BID (WT < 150 kg, CrCl > 30 mL/min) AND *Sequential Compression Device (SCD) Assessment and Plan - Assessment (1) Chest pain Code(s): R07.9 - Chest pain, unspecified Status: Acute - Plan Chest pain -Patient does have increased risk factors include age, body habitus, hypertension, hyper lipidemia, coronary disease, family history of heart disease -Patient has been ruled out for acute coronary event with serial cardiac enzymes that are negative -Serial EKGs reviewed by calvinelf which shows sinus rhythm, however possible inferior infarct. There are Q waves noted in lead III. But no Q waves noted in lead II or aVF -Discussed with patient's floor framer Dr. Askew who recommended that we obtain a myocardial perfusion study while he is in the hospital -Myocardial perfusion study was performed and indicated no reversible perfusion defects, intermediate risk due to ejection fraction 48% -Patient continued on aspirin, nitroglycerin -Continue monitor telemetry Hypertension, hyper lipidemia, coronary disease -Continue home medications DVT prevention -Sequential compression devices Discharge Planning: Discharge home in stable condition Activity: Ad awais. Diet: Healthy heart diet Medication per medication reconciliation Follow-up with primary medical doctor in 1 week
[2018-01-02] MEDS ORDERED: Carvedilol 6.25 MG Tablet PO SCH (09:00)
[2018-01-02] MEDS ORDERED: traZODone 50 MG Tablet PO SCH (09:00)
[2018-01-02] MEDS ORDERED: Aspirin 325 MG Tablet PO SCH (09:00)
[2018-01-02 11:38] VITALS: BP 142/79; PULSE 58; TEMP 97.5; O2SAT 99
[2018-01-02] MEDS ORDERED: Regadenoson Inj 0.4 MG/5 ML Syringe IV.PUSH ONE (12:55)
[2018-01-02] MEDS: Sod Chloride 0.9% Inj 1,000 ML IV.CONT SCH (13:11)
--- NOTE | 2018-01-02 13:38 | NM ---
EXAM DATE: 01/02/2018 11:48 AM EDT AGE/SEX: 77 years / Male INDICATIONS:Angina. Myocardial infarction Mid chest pain for two weeks. CLINICAL DATA: This is the patient's initial encounter. Patient reports that signs and symptoms have been present for 1 day and indicates a pain score of 2/10. MEDICAL/SURGICAL HISTORY: Hypertension. Asthma. Appendectomy. Coronary artery stent. COMPARISON: No prior exams available for comparison. No external comparison. DOSE: 11.0 mCi Tc 99m Myoview at rest 35.0 mCi [id number] at stress 0.4 mg Lexiscan STRESS SYMPTOMS: Short of breath. EJECTION FRACTION: 48 % TECHNIQUE: The patient underwent pharmacologic stress with infusion of prescribed dose. Continuous ECG tracing was monitored during stress. Gated SPECT imaging was performed after stress and conventi onal SPECT imaging was performed at rest. The examination was performed on a SPECT/CT scanner, both attenuation and non-corrected datasets were reviewed. FINDINGS: Distribution: The maximum perfused segment at stress is in the lateral wall. Perfusion Study: There is a small fixed defect at the anterior as well as inferior wall. Gated Study: There are intact wall motion and wall thickening without hypokinetic or dyskinetic segm ents. The ejection fraction is calculated at 48%. RISK CATEGORY: Intermediate (1-3 % Annual Mortality Rate) CONCLUSION: 1. No reversible perfusion defects are identified to suggest stress-induced myocardial ischemia. Electronically signed by: Satya Craig MD 01/02/2018 1:37 PM EDT
--- NOTE | 2018-01-02 14:18 | TR ---
Date Performed: 01/02/2018 Time Performed: 12:37:23 DOCTOR: Joaquim Craven DRUG LIST: CLINICAL HISTORY: ANGINA REASON FOR TEST: Angina REASON FOR ENDING: OBSERVATION: CONCLUSION: COMMENTS: Lexiscan stress test was performed under standard four minute protocol. Radionuclide was injected one minute prior to ending the test. No electrocardiographic abormalities were present t o suggest ischemia. Nuclear imaging and interpretation are pending.
--- NOTE | 2018-01-02 16:25 | ECG ---
Date Performed: 01/01/2018 Time Performed: 22:42:38 PTAGE: 77 years EKG: Sinus rhythm Diffuse Nonspecific T-wave abnormalities BORDERLINE ECG PREVIOUS TRACING : 12/19/2016 11.35 Since the previous tracing, no significant change noted DOCTOR: Terrell Onofre Interpretating Date/Time 01/02/2018 16:25:18
--- NOTE | 2018-01-03 19:57 | ECG ---
Date Performed: 01/02/2018 Time Performed: 03:01:03 PTAGE: 77 years EKG: Sinus rhythm POSSIBLE INFERIOR MYOCARDIAL INFARCTION Since previous tracing, no significant change noted BORDERLI NE ECG PREVIOUS TRACING : 01/01/2018 22.42 DOCTOR: Keyla Lara Interpretating Date/Time 01/03/2018 19:54:37
== END 2018-01-02 18:50 | disposition home or self-care (01) ==
LOC: PHED 22:31 → PHEDA 22:31 → PH3 01-02 07:31
PROVIDERS: ADMIT Hospitalist; ATTEND Hospitalist